=== PATIENT | female | born 1985 | race Caucasian/White ===

== ENCOUNTER 2018-05-16 17:29 | Inpatient (IN) ==
[2018-05-16] MEDS ORDERED: 0.9 % Sodium Chloride 1,000 ML IVC ONE ×2 (18:43→20:48)
[2018-05-16] MEDS ORDERED: *HR* Promethazine 25 MG/ML VIAL IVP ONE (18:44)
[2018-05-16] MEDS ORDERED: Ketorolac 15 MG/ML VIAL IVP ONE (18:44)
--- NOTE | 2018-05-16 18:47 | Emergency Department Note ---
Disposition Clinical Impression: Tobacco abuse Pneumonia Qualifiers: Pneumonia type: due to unspecified organism Laterality: unspecified laterality Lung location: unspecified part of lung Qualified Code(s): J18.9 - Pneumonia, unspecified organism Sepsis Qualifiers: Sepsis type: sepsis due to unspecified organism Qualified Code(s): A41.9 - Sepsis, unspecified organism Disposition: Home, Self-Care Condition: Good Referrals: NONE,PCP [Primary Care Provider] - General Adult HPI - General Stated complaint: FLU Time Seen by Provider: 05/16/18 18:25 Source: patient Mode of arrival: ambulatory Limitations: no limitations Nursing Notes Reviewed: Yes Vital Signs Reviewed: Yes - History of Present Illness HPI Narrative: 33 year old female with history of tobacco use and recent diagnosis of the flu presents for evaluation of flulike symptoms. Patient states symptom onset was 2 days ago. Describes it as cough and shortness of breath and muscle aches. Patient did have fever and chills at that time. Patient was evaluated yesterday in the ED and was told she had the flu and was started on Tamiflu. Since in the patient states her symptoms gotten worse. Patient is having a productive cough. Patient's continued to spike fevers. Patient states that her last dose of Tylenol and/or Motrin was earlier today. Does have episodes of emesis. Patient also states that she is a smoker. Denies any chest pain. No abdominal pain. Pain Scale: 7 - Related Data Previous Rx's Medication Instructions Recorded Oxycodone HCl/Acetaminophen 1 each PO Q1-4H PRN #10 tablet 03/01/15 [Percocet 5-325 mg Tablet] Promethazine [Phenergan] 12.5 mg PO Q6HR PRN #10 tablet 03/01/15 Ibuprofen 600 mg PO Q6-8H PRN #30 tablet 03/02/15 Ondansetron ODT [Zofran ODT] 4 mg SL Q4HR #10 tab.rapdis 03/02/15 Tamsulosin [Flomax] 0.4 mg PO DAILY #10 capsule 03/02/15 Clindamycin [Cleocin] 450 mg PO TID #90 capsule 04/16/16 Clindamycin [Cleocin] 300 mg PO TID #21 capsule 06/06/16 Naproxen [Naprosyn] 500 mg PO BID PRN #15 tablet 06/06/16 Cyclobenzaprine [Flexeril] 10 mg PO TID #30 tablet 06/18/16 Ibuprofen [Motrin] 400 mg PO Q8HR #30 tablet 06/18/16 Tramadol HCl [Ultram] 50 mg PO QID PRN #12 tab 07/14/16 Naproxen [Naprosyn] 500 mg PO BID #20 tablet 01/08/18 Ondansetron ODT [Zofran ODT] 4 mg SL Q6HR #12 tab.rapdis 05/15/18 Oseltamivir [Tamiflu] 75 mg PO BID #10 capsule 05/15/18 Allergies Allergy/AdvReac Type Severity Reaction Status Date / Time No Known Allergies Allergy Verified 06/18/16 19:45 All systems ED: reviewed and negative except as stated. Constitutional: Reports: fever Cardiovascular: Denies: chest pain Respiratory: Reports: cough, dyspnea, sputum production Gastrointestinal: Reports: nausea, vomiting. 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 - Social History Smoking Status: Current every day smoker Smokeless Tobacco Status: No Alcohol use: Reports: none Drug use: Reports: none Physical Exam - General Limitations: no limitations General appearance: alert, in no apparent distress - Head Head exam: atraumatic, normocephalic, normal inspection - Eye Eye exam: Present: normal appearance, PERRL, EOMI - ENT ENT exam: normal exam, normal oropharynx, mucous membranes moist - Neck Neck exam: Present: normal inspection - Chest Chest inspection: Present: normal inspection, symmetric chest wall rise - Respiratory Respiratory exam: Present: normal lung sounds bilaterally. Absent: respiratory distress, prolonged expiratory phase - Cardiovascular Cardiovascular exam: Present: regular rate, normal rhythm. Absent: systolic murmur - Abdominal Exam Abdominal exam: Present: soft, Non-Tender - Extremities Exam Extremities exam: Present: normal inspection. Absent: pedal edema - Back Exam Back exam: Present: normal inspection - Neurological Exam Neurological exam: Present: alert, oriented X3, CN II-XII intact - Skin Skin exam: Present: warm, dry, intact, normal color Course Course Narrative: Patient presents following flulike symptoms. Agents workup reviewed yesterday showed a chest x-ray basic labs. Patient's labs are unremarkable. Patient be treated symptomatically with IV fluids antiemetics repeat chest x-ray and anti-inflammatories. - Reevaluation(s) Reevaluation #1: Patient is updated on plan of care. Time: 19:37 Reevaluation #2: Patient seen and examined. Patient is requiring 2 L nasal cannula. Patient will be admitted for pneumonia. Time: 20:44 Vital Signs Temperature 100.7 F H 05/16/18 17:44 Pulse Rate 116 05/16/18 17:44 Respiratory Rate 24 05/16/18 17:44 Blood Pressure 115/77 05/16/18 17:44 O2 Sat by Pulse Oximetry 93 05/16/18 17:44 Temperature 102.3 F H 05/16/18 20:37 Pulse Rate 98 05/16/18 20:37 Respiratory Rate 16 05/16/18 20:37 Blood Pressure 107/74 05/16/18 20:37 O2 Sat by Pulse Oximetry 96 05/16/18 20:37 Oxygen Delivery Oxygen Delivery Nasal Cannula Medical Decision Making - [facility] Narrative Medical decision making narrative: Patient presents for concerns of the flu. Patient states she treated empirically yesterday with seen in the ED. Patient had a chest x-ray was started on Tamiflu. Patient states symptoms progressed and the patient returned. Patient's been having a productive cough. Fevers. On exam the patient had a nonfocal lung exam. Chest x-ray shows pneumonia. Patient was started on the most appropriate antibiotics. Patient was also treated symptomatically with anti-inflammatories and fluids. Patient's labs are clinically unremarkable. Patient does meet SIRS criteria and sepsis however the patient does not meet septic shock or severe sepsis. Patient does not require the 30 mL/kg fluid bolus. On repeat evaluation the patient's lungs are unchanged. Patient still shows good perfusion. Patient's flu swab today is negative. - Lab Data Result diagrams: 05/16/18 19:30 05/16/18 19:30 Lab Results 05/16/18 05/16/18 05/16/18 Range/Units 19:30 19:30 19:30 WBC 5.7 (4.3-11.1) K/mcL RBC 4.45 (3.82-4.97) M/mcL Hgb 13.4 (11.5-15.4) g/dL Hct 39.9 (35.3-44.9) % MCV 89.7 (83.0-100.0) fL MCH 30.1 (28.0-33.3) pg MCHC 33.6 (31.6-35.5) g/dL RDW 12.7 (11.5-14.5) % Plt Count 139 L (140-400) K/mcL MPV 10.7 (9.4-12.4) fL Immature Gran % 0.5 (0-4) % Seg Neutrophils % 87.1 % Lymphocytes % 8.3 % Monocytes % 3.5 % Eosinophils % 0.4 % Basophils % 0.2 % Neutrophils # 4.9 (1.6-8.9) K/mcL Lymphocytes # 0.5 L (0.6-4.6) K/mcL Monocytes # 0.2 (0.0-1.3) K/mcL Eosinophils # 0.0 (0.0-0.6) K/mcL Basophils # 0.0 (0.0-0.2) K/mcL Sodium 136 (136-145) mEq/L Potassium 3.6 (3.5-5.1) mEq/L Chloride 102 (98-107) mEq/L Carbon Dioxide 26 (23-29) mEq/L BUN 8 (6-20) mg/dL Creatinine 0.73 (0.60-1.20) mg/dL Est GFR ( Amer) > 60 (> 60) Est GFR (Non-Af Amer) > 60 (> 60) BUN/Creatinine Ratio 11 (6-26) Glucose 96 (70-105) mg/dL Calculated Osmolality 280 (280-300) Lactic Acid 0.9 (0.5-2.2) mmol/L Calcium 9.0 (8.6-10.3) mg/dL Total Bilirubin 0.4 (0.3-1.0) mg/dL AST 16 (13-39) Units/L ALT 13 (7-52) Units/L Alkaline Phosphatase 54 (34-104) Units/L Serum Total Protein 6.9 (6.4-8.9) g/dL Albumin 4.1 (3.5-5.7) g/dL Globulin 2.8 (2.4-3.5) g/dL Albumin/Globulin Ratio 1.5 (1.1-2.2) - Radiology Data Radiology results reviewed: Yes I reviewed the patient's radiology results. Chest X-Ray 05/16/18 18:43 IMPRESSION: New infiltrates suggestive of pneumonia involving mostly the right upper and left lower lobes. No evidence of pleural effusion or pneumothorax. D/ / 05/16/2018 19:19:52 Arianne Hackett MD / bcajay Interpreting Provider: MD Ean Delgadillo - Ean Situation: Demographics Background: Presenting Complaint Assessment: Vital Signs, Course and respsone to treatment, Patient/Family Expectation Recommendation: Barrier(s) to disposition, Recommendation based on pending studies, treatments, or consults S.[place]raham Report Given to: Dr. Jarrett Mckoy Repor Time: 20:51 Attestation Statement - Attestation Attestation: I examined this patient and my medical decision-making was reviewed with the Resident Physician. I agree with the documented findings, disposition and treatment plan as described except to the extent set forth below. Findings consistent with pneumonia. She is currently under the treatment for influenza but this was not tested. She actually does not have pneumonia but does have bilateral pnuemonia. She will be started on antibiotics, she will require admission due to need for supplemental oxygen. She is admitted for further workup and management.
[2018-05-16] MEDS ORDERED: Doxycycline 100 MG CAPSULE PO ONE (19:18)
[2018-05-16] MEDS ORDERED: Azithromycin 250 MG TABLET PO ONE (19:18)
[2018-05-16 20:03] LABS: Basophils % 0.2 %; Eosinophils % 0.4 %; Hematocrit 39.9 % (35.3-44.9); Hemoglobin 13.4 g/dL (11.5-15.4); Immature Granulocytes % 0.5 % (0-4); Lymphocytes # 0.5 K/mcL (0.6-4.6); Lymphocytes % 8.3 %; Mean Corpuscular HGB Conc 33.6 g/dL (31.6-35.5); Mean Corpuscular Hemoglobin 30.1 pg (28.0-33.3); Mean Corpuscular Volume 89.7 fL (83.0-100.0); Mean Platelet Volume 10.7 fL (9.4-12.4); Monocytes # 0.2 K/mcL (0.0-1.3); Monocytes % 3.5 %; Neutrophils # 4.9 K/mcL (1.6-8.9); Platelet Count 139 K/mcL (140-400); Red Blood Count 4.45 M/mcL (3.82-4.97); Red Cell Distribution Width 12.7 % (11.5-14.5); Segmented Neutrophils % 87.1 %
[2018-05-16 20:22] LABS: Alanine Aminotransferase 13 Units/L (7-52); Albumin 4.1 g/dL (3.5-5.7); Albumin/Globulin Ratio 1.5 (1.1-2.2); Alkaline Phosphatase 54 Units/L (34-104); Aspartate Amino Transferase 16 Units/L (13-39); BUN/Creatinine Ratio 11 (6-26); Bilirubin,Total 0.4 mg/dL (0.3-1.0); Blood Urea Nitrogen 8 mg/dL (6-20); Carbon Dioxide 26 mEq/L (23-29); Chloride 102 mEq/L (98-107); Globulin 2.8 g/dL (2.4-3.5); Glucose 96 mg/dL (70-105); Osmolality,Calculated 280 (280-300); Potassium 3.6 mEq/L (3.5-5.1); Sodium 136 mEq/L (136-145); Total Protein 6.9 g/dL (6.4-8.9); eGFR For Non-African Americans > 60 (> 60)
[2018-05-16] MEDS ORDERED: cefTRIAXone 1,000 MG in Water for inj. (sterile) 20 ML 10 ML IVP ONE (20:47)
[2018-05-17 01:08] LABS: Bilirubin,Urine Negative (Negative); Blood,Urine Small (Negative); Clarity,Urine Clear (Clear); Color,Urine Yellow (Yellow); Glucose,Urine (UA) Normal (Normal); Ketones,Urine Negative (Negative); Leukocyte Esterase,Urine Negative (Negative); Nitrite,Urine Negative (Negative); Protein,Urine Negative (Neg-Trace); Specific Gravity,Urine 1.007 (1.010-1.025); Urobilinogen,Urine Normal (Normal)
[2018-05-17 01:09] LABS: Bacteria,Urine None Seen per hpf (None-Few); Hyaline Casts,Urine None Seen per lpf (None-Few); Squamous Epithelial Cell,Urine Many per lpf (None-Few); WBC,Urine 0-3 per hpf (0-3)
[2018-05-17] MEDS: Acetaminophen 325 MG TABLET PO PRN ×3 (01:29→19:50)
[2018-05-17] MEDS ORDERED: Naloxone 0.4 MG/ML INJ IVP PRN (01:44)
[2018-05-17] MEDS ORDERED: 0.9 % Sodium Chloride 1,000 ML IVC ONE (01:54)
[2018-05-17] MEDS: Ibuprofen 400 MG TABLET PO PRN ×3 (02:22→19:50)
[2018-05-17] MEDS: *HR* HYDROcodone/Acet 5/325 mg TABLET PO PRN ×2 (04:43→17:03)
--- NOTE | 2018-05-17 06:08 | Internal Med History&Physical ---
Date of Encounter: 05/17/18 Time of Encounter: 01:30 Internal Medicine - H&P: HPI Chief complaint: Pneumonia Admitted From: Emergency Dept History of present illness: Ms. Nieves is a 33 year old female Patient states she began having a funny feeling in her chest 2 days prior to admission, gradually the pain worsened and was accompanied with shaking, fever and chills. She also started having a cough that is productive of white sputum at first but now green sputum. She went to the ER the day before her admission, was diagnosed with the flu, given Tamiflu and sent home. Despite the Tamiflu her symptoms worsened, she continued to have fevers, chills and vomiting. She returned to the emergency room for further management. In the emergency room her CBC showed a platelet count of 139, BMP was within normal limits. Lactic acid was 0.9. Urinalysis showed small blood with many squamous cells. Chest x-ray when compared to the day prior showed a new infiltrate suggesting pneumonia involving the right upper and left lower lobes. She was given antibiotics, blood cultures were drawn and she was sent to the floor for further management. Upon my assessment, patient states that she no longer feels nauseous and would like something to eat. She denies diarrhea, constipation and abdominal pain. She has some chest pain secondary to coughing, headache and occasionally is experiencing chills. She is a smoker of about a pack a day, but states that she desires to quit. She declines nicotine patch. Past Med Surg Social Fam HX - Past Medical History Medical history: kidney stones Additional medical history: MRSA Psychiatric history: no psych history - Past Surgical History Surgical History: Additional surgical history: Tonsilectomy - Social History Smoking Status: Current every day smoker Packs per day: 1 Smokeless Tobacco Status: No Alcohol use: none Drug use: none Internal Medicine - H&P: Meds No Known Home Drugs 05/16/18 [History] Allergy/AdvReac Type Severity Reaction Status Date / Time No Known Allergies Allergy Verified 06/18/16 19:45 All Systems PM: A 10-system review of systems was performed and is negative for pertinent findings except as documented above in the HPI. - Constitutional Vitals: Temp Pulse Resp BP Pulse Ox 99.3 F 98 17 90/53 96 05/17/18 05:25 05/17/18 05:25 05/17/18 05:25 05/17/18 05:25 05/17/18 05:25 General appearance: Present: cooperative, mild distress, A&O X 3, pleasant, answers questions appropriately Exam: As above - Head Head exam: Present: normal inspection - Eye Eye exam: Present: EOMI, normal appearance - Respiratory Respiratory exam: Present: chest wall tenderness, CTAB. Absent: rales, respiratory distress, rhonchi, wheezes - Cardiovascular Cardiovascular exam: Present: RRR. Absent: diastolic murmur, systolic murmur - GI/Abdominal GI/Abdominal exam: Present: normal bowel sounds, soft. Absent: tenderness - Extremities Exam Extremities exam: Present: warm, radial pulses palpable and symmetrical. Absent: calf tenderness, pedal edema, tenderness - Neurological Exam Neurological exam: Present: no focal deficits, strengths equal and symetr th roughout. Absent: motor sensory deficit, facial droop, speech deficit - Skin Skin exam: Present: dry, normal color, warm Internal Med - H&P Results - Labs CBC & Chem 7: 05/16/18 19:30 05/16/18 19:30 Labs: Short CBC 05/16/18 Range/Units 19:30 WBC 5.7 (4.3-11.1) K/mcL Hgb 13.4 (11.5-15.4) g/dL Hct 39.9 (35.3-44.9) % Plt Count 139 L (140-400) K/mcL Neutrophils # 4.9 (1.6-8.9) K/mcL BMP 05/16/18 19:30 Sodium 136 Potassium 3.6 Chloride 102 Carbon Dioxide 26 BUN 8 Creatinine 0.73 Glucose 96 Calcium 9.0 Liver Function 05/16/18 Range/Units 19:30 Total Bilirubin 0.4 (0.3-1.0) mg/dL AST 16 (13-39) Units/L ALT 13 (7-52) Units/L Alkaline Phosphatase 54 (34-104) Units/L Albumin 4.1 (3.5-5.7) g/dL Urine 05/17/18 Range/Units 00:50 Urine Color Yellow (Yellow) Urine Clarity Clear (Clear) Urine pH 6.0 (5.0-8.0) pH Units Ur Specific [place] 1.007 L (1.010-1.025) Urine Protein Negative (Neg-Trace) mg/dL Urine Glucose (UA) Normal (Normal) mg/dL - Impressions ITS Impressions Chest X-Ray 05/16/18 18:43 IMPRESSION: New infiltrates suggestive of pneumonia involving mostly the right upper and left lower lobes. No evidence of pleural effusion or pneumothorax. D/ / 05/16/2018 19:19:52 Arianne Hackett MD / bcarter Interpreting Provider: Arianne Hackett MD - Assessment and plan (1) Pneumonia Current Visit: Yes Status: Acute Assessment and plan: As evidenced by patient's chest x-ray, patient was started on antibiotics in the emergency room, blood cultures were drawn. She was diagnosed with the flu the day before, despite not having a flu swab performed. Continue azithromycin and ceftriaxone Follow-up blood cultures available Continue Tamiflu Monitor vitals. Qualifiers: Pneumonia type: due to unspecified organism Laterality: unspecified laterality Lung location: unspecified part of lung Qualified Code(s): J18.9 - Pneumonia, unspecified organism (2) Sepsis Current Visit: Yes Status: Acute Assessment and plan: Patient met sepsis criteria with elevated temperature, respiratory rate and heart rate. Chest x-ray showed pneumonia as a source. Lactic acid was 0.9 Treatment as above Vital signs improved, no longer meet sepsis criteria Qualifiers: Sepsis type: sepsis due to unspecified organism Qualified Code(s): A41.9 - Sepsis, unspecified organism (3) Acute respiratory failure with hypoxia Current Visit: Yes Status: Acute Assessment and plan: Likely secondary to pneumonia, patient stable on 2 L of oxygen nasal cannula. Will wean as tolerated (4) Hematuria Current Visit: Yes Status: Acute Assessment and plan: UA showed small blood, should follow-up with urinalysis outpatient to ensure resolution. Qualifiers: Hematuria type: asymptomatic microscopic Qualified Code(s): R31.21 - Asymptomatic microscopic hematuria (5) Thrombocytopenia Current Visit: Yes Status: Acute Assessment and plan: Platelet count marginally low at 139. Review of past values show low normal platelets. Continue to monitor, repeat labs in the morning (6) Tobacco abuse Current Visit: Yes Status: Acute Assessment and plan: Declines nicotine patch (7) DVT prophylaxis Current Visit: Yes Status: Acute Assessment and plan: SCDs - Time Spent With Patient Total time spent is greater than 50% in coordination of care (as documented) at patient's floor/unit and/or counseling patient: Greater than 35 minutes
[2018-05-17 07:59] LABS: Mean Corpuscular HGB Conc 32.6 g/dL (31.6-35.5); Mean Corpuscular Hemoglobin 29.8 pg (28.0-33.3); Mean Corpuscular Volume 91.4 fL (83.0-100.0); Mean Platelet Volume 10.8 fL (9.4-12.4); Platelet Count 118 K/mcL (140-400); Red Blood Count 3.72 M/mcL (3.82-4.97)
[2018-05-17 08:06] LABS: BUN/Creatinine Ratio 12 (6-26); Blood Urea Nitrogen 7 mg/dL (6-20); Carbon Dioxide 23 mEq/L (23-29); Chloride 111 mEq/L (98-107); Glucose 134 mg/dL (70-105); Osmolality,Calculated 288 (280-300); Potassium 3.3 mEq/L (3.5-5.1); Sodium 139 mEq/L (136-145); eGFR For Non-African Americans > 60 (> 60)
[2018-05-17 08:26] LABS: Hemoglobin 11.1 g/dL (11.5-15.4)
[2018-05-17] MEDS ORDERED: cefTRIAXone 1,000 MG in Water for inj. (sterile) 20 ML 10 ML IVP SCH (09:00)
--- NOTE | 2018-05-17 09:13 | Internal Med Progress Note ---
Hospitalist Progress Note - Encounter Date of Encounter: 05/17/18 Time of Encounter: 08:45 - Subjective Interval History: 33-year-old female with no significant past medical history who was admitted and being managed for sepsis secondary to pneumonia. Seen and examined at the bedside, complaining of feeling very tired and weak. 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 She has no known home medications. Labs and vitals notedlow blood pressure We will send sputum culture, will start continuous IV fluid hydration. - Exam Vitals: Temp Pulse Resp BP Pulse Ox 98 F 89 18 88/58 94 05/17/18 07:19 05/17/18 07:19 05/17/18 07:19 05/17/18 07:19 05/17/18 07:19 Exam: Gen: Febrile, in mild resp distress HEENT: Moist roal mucosa, not jaundiced, not pale, not cyanotic Head: Atraumtic Chest: equal chest movement bilaterally Respiratory: Rhonchi right lower and middle lobes. Left lung is clear to auscultation Heart: S1/S2 no murmurs, gallops or rubs Abdomen: Flat soft and nontender no palpable organomegaly Extremities: Tattoos, no pedal edema. - Assessment and Plan (1) Sepsis Current Visit: Yes Status: Acute Assessment and Plan: Patient meets sepsis criteria with fever, tachycardia, low blood pressure and chest x-ray evidence of pneumonia Until IV fluid hydration Send sputum culture Follow blood cultures Continue Tamiflu, continue azithromycin and ceftriaxone at sepsis doses Continue to monitor closely Lactate on presentation was within normal limit (2) DVT prophylaxis Current Visit: Yes Status: Acute Assessment and Plan: Ambulate patient when necessary, SCDs (3) Hematuria Current Visit: Yes Status: Acute Assessment and Plan: Per UA< follow/monitor as outpatient (4) Pneumonia Current Visit: Yes Status: Acute (5) Thrombocytopenia Current Visit: Yes Status: Acute Assessment and Plan: Likely due to sepsis and dilution from IV fluids, continue to monitor. No bleeding. (6) Tobacco abuse Current Visit: Yes Status: Chronic Assessment and Plan: Encouraged cessation. (7) Hypoxia Current Visit: Yes Status: Acute Assessment and Plan: Stable on 2 L of oxygen by nasal cannula, continue the same. - Time Spent with Patient Total time spent is greater than 50% in coordination of care (as documented) at patient's floor/unit and/or counseling patient: Internal Medicine: Result - Labs CBC & Chem 7: 05/17/18 06:56 05/17/18 06:56 Labs: Short CBC 05/16/18 05/17/18 Range/Units 19:30 06:56 WBC 5.7 5.6 (4.3-11.1) K/mcL Hgb 13.4 11.1 L D (11.5-15.4) g/dL Hct 39.9 34.0 L (35.3-44.9) % Plt Count 139 L 118 L (140-400) K/mcL Neutrophils # 4.9 (1.6-8.9) K/mcL BMP 05/16/18 05/17/18 19:30 06:56 Sodium 136 139 Potassium 3.6 3.3 L Chloride 102 111 H Carbon Dioxide 26 23 BUN 8 7 Creatinine 0.73 0.60 Glucose 96 134 H Calcium 9.0 8.0 L Liver Function 05/16/18 Range/Units 19:30 Total Bilirubin 0.4 (0.3-1.0) mg/dL AST 16 (13-39) Units/L ALT 13 (7-52) Units/L Alkaline Phosphatase 54 (34-104) Units/L Albumin 4.1 (3.5-5.7) g/dL Urine 05/17/18 Range/Units 00:50 Urine Color Yellow (Yellow) Urine Clarity Clear (Clear) Urine pH 6.0 (5.0-8.0) pH Units Ur Specific [place] 1.007 L (1.010-1.025) Urine Protein Negative (Neg-Trace) mg/dL Urine Glucose (UA) Normal (Normal) mg/dL - Impressions Impressions Chest X-Ray 05/16/18 18:43 IMPRESSION: New infiltrates suggestive of pneumonia involving mostly the right upper and left lower lobes. No evidence of pleural effusion or pneumothorax. D/ / 05/16/2018 19:19:52 Arianne Hackett MD / bcarter Interpreting Provider: Arianne Hackett MD - VTE Documentation of Mechanical Device: Intermittent pneumatic compression device Consult Discharge Plan - Plan (1) Sepsis Qualifiers: Sepsis type: sepsis due to unspecified organism Qualified Code(s): A41.9 - Sepsis, unspecified organism (3) Hematuria Qualifiers: Hematuria type: asymptomatic microscopic Qualified Code(s): R31.21 - Asympto matic microscopic hematuria (4) Pneumonia Qualifiers: Pneumonia type: due to unspecified organism Laterality: unspecified laterality Lung location: unspecified part of lung Qualified Code(s): J18.9 - Pneumonia, unspecified organism
[2018-05-17] MEDS: cefTRIAXone 2,000 MG in Water for inj. (sterile) 20 ML 20 ML IVP SCH (09:52)
[2018-05-17] MEDS: Ringers Solution, Lactated 1,000 ML IVC SCH ×2 (09:52→18:34)
[2018-05-17] MEDS ORDERED: Azithromycin 500 MG in D5% in Water 250 ML IVPB SCH (21:00)
[2018-05-17] MEDS ORDERED: Ipratropium/Albuterol Neb 3 ML IH ONE (21:47)
[2018-05-17] MEDS ORDERED: Ipratropium/Albuterol Neb 3 ML ONE (21:49)
[2018-05-18] MEDS: *HR* HYDROcodone/Acet 5/325 mg TABLET PO PRN ×3 (01:26→23:04)
[2018-05-18] MEDS: Ringers Solution, Lactated 1,000 ML IVC SCH (04:41)
[2018-05-18] MEDS: Ibuprofen 400 MG TABLET PO PRN ×3 (04:41→21:59)
[2018-05-18 05:13] LABS: Basophils % 0.2 %; Eosinophils # 0.1 K/mcL (0.0-0.6); Eosinophils % 1.3 %; Hematocrit 35.4 % (35.3-44.9); Hemoglobin 11.3 g/dL (11.5-15.4); Immature Granulocytes % 0.4 % (0-4); Lymphocytes # 0.7 K/mcL (0.6-4.6); Lymphocytes % 15.1 %; Mean Corpuscular HGB Conc 31.9 g/dL (31.6-35.5); Mean Corpuscular Hemoglobin 29.5 pg (28.0-33.3); Mean Corpuscular Volume 92.4 fL (83.0-100.0); Mean Platelet Volume 10.2 fL (9.4-12.4); Monocytes # 0.3 K/mcL (0.0-1.3); Monocytes % 6.7 %; Neutrophils # 3.7 K/mcL (1.6-8.9); Platelet Count 125 K/mcL (140-400); Red Blood Count 3.83 M/mcL (3.82-4.97); Red Cell Distribution Width 13.2 % (11.5-14.5); Segmented Neutrophils % 76.3 %
[2018-05-18 05:32] LABS: BUN/Creatinine Ratio 10 (6-26); Blood Urea Nitrogen 6 mg/dL (6-20); Calcium 8.2 mg/dL (8.6-10.3); Carbon Dioxide 24 mEq/L (23-29); Chloride 108 mEq/L (98-107); Glucose 106 mg/dL (70-105); Osmolality,Calculated 282 (280-300); Potassium 3.7 mEq/L (3.5-5.1); Sodium 137 mEq/L (136-145); eGFR For Non-African Americans > 60 (> 60)
[2018-05-18] MEDS: cefTRIAXone 2,000 MG in Water for inj. (sterile) 20 ML 20 ML IVP SCH (08:15)
[2018-05-18] MEDS: Acetaminophen 325 MG TABLET PO PRN ×2 (08:24→23:21)
[2018-05-18] MEDS: Ondansetron 4 MG/2 ML VIAL IVP PRN (09:06)
--- NOTE | 2018-05-18 09:28 | Internal Med Progress Note ---
Hospitalist Progress Note - Encounter Date of Encounter: 05/18/18 Time of Encounter: 09:26 - Subjective Interval History: 33-year-old female with no significant past medical history who is admitted and being managed for sepsis secondary to pneumonia. Seen and examined at the bedside She continued to have fever, most recent episode this a.m at 0517 100.3 She also has nausea and vomiting this a.m She continues to require 02 2L by nasal canula and has productive cough Rpt 2 views CXR scheduled - Exam Vitals: Temp Pulse Resp BP Pulse Ox 100.3 F H 106 19 104/68 92 05/18/18 05:17 05/18/18 05:17 05/18/18 05:17 05/18/18 05:17 05/18/18 05:17 Exam: Gen: Febrile, in mild resp distress HEENT: Moist roal mucosa, not jaundiced, not pale, not cyanotic Head: Atraumtic Chest: equal chest movement bilaterally Respiratory: Rhonchi right lower and middle lobes. Left lung is clear to auscultation Heart: S1/S2 no murmurs, gallops or rubs Abdomen: Flat soft and nontender no palpable organomegaly Extremities: Tattoos, no pedal edema. - Assessment and Plan (1) Sepsis Current Visit: Yes Status: Acute Assessment and Plan: Patient meets sepsis criteria with fever, tachycardia, low blood pressure and chest x-ray evidence of pneumonia Likley due to influenza and pneumonia Repeat chest x-ray 2 views scheduled to assess for any parapneumonic effusion Continue Tamiflu-day 3 continue azithromycin and ceftriaxone at sepsis doses-day 2 Continue to monitor closely Lactate on presentation was within normal limit Discontinue IV fluids Follow-up cultures: Sputum home. Continue supportive care: Antiemetics, antipyretics (2) DVT prophylaxis Current Visit: Yes Status: Acute Assessment and Plan: Ambulate patient when necessary, SCDs (3) Hematuria Current Visit: Yes Status: Acute Assessment and Plan: Per UA< follow/monitor as outpatient (4) Pneumonia Current Visit: Yes Status: Acute (5) Thrombocytopenia Current Visit: Yes Status: Acute Assessment and Plan: Likely due to sepsis and dilution from IV fluids, continue to monitor. No bleeding. (6) Tobacco abuse Current Visit: Yes Status: Chronic Assessment and Plan: Encouraged cessation. (7) Hypoxia Current Visit: Yes Status: Acute Assessment and Plan: Stable on 2 L of oxygen by nasal cannula, continue the same. - Time Spent with Patient Total time spent is greater than 50% in coordination of care (as documented) at patient's floor/unit and/or counseling patient: Plan of Care Discussed with: patient Internal Medicine: Result - Labs CBC & Chem 7: 05/18/18 04:46 05/18/18 04:46 Labs: Short CBC 05/18/18 Range/Units 04:46 WBC 4.8 (4.3-11.1) K/mcL Hgb 11.3 L (11.5-15.4) g/dL Hct 35.4 (35.3-44.9) % Plt Count 125 L (140-400) K/mcL Neutrophils # 3.7 (1.6-8.9) K/mcL BMP 05/18/18 04:46 Sodium 137 Potassium 3.7 Chloride 108 H Carbon Dioxide 24 BUN 6 Creatinine 0.61 Glucose 106 H Calcium 8.2 L - VTE Documentation of Mechanical Device: Intermittent pneumatic compression device Consult Discharge Plan - Plan Referrals: NONE,PCP [Primary Care Provider] - (1) Sepsis Qualifiers: Sepsis type: sepsis due to unspecified organism Qualified Code(s): A41.9 - Sepsis, unspecified organism (3) Hematuria Qualifiers: Hematuria type: asymptomatic microscopic Qualified Code(s): R31.21 - Asymptomatic microscopic hematuria (4) Pneumonia Qualifiers: Pneumonia type: due to influenza A virus Laterality: unspecified laterality Lung location: unspecified part of lung Qualified Code(s): J10.00 - Influenza due to other identified influenza virus with unspecified type of pneumonia
[2018-05-18] MEDS: Piperacillin/Tazobactam 3.375 GM in 0.9 % Sodium Chloride Mini Bag 100 ML IVPB SCH ×2 (12:23→20:45)
[2018-05-18] MEDS: *HR* Promethazine 25 MG/ML VIAL IVP PRN ×2 (12:23→20:53)
[2018-05-19] MEDS ORDERED: 0.9 % Sodium Chloride 1,000 ML IVC ONE (03:09)
[2018-05-19 04:52] LABS: Basophils % 0.3 %; Eosinophils # 0.1 K/mcL (0.0-0.6); Eosinophils % 3.4 %; Hematocrit 30.8 % (35.3-44.9); Hemoglobin 10.1 g/dL (11.5-15.4); Immature Granulocytes % 0.3 % (0-4); Lymphocytes # 1.1 K/mcL (0.6-4.6); Lymphocytes % 27.1 %; Mean Corpuscular HGB Conc 32.8 g/dL (31.6-35.5); Mean Corpuscular Hemoglobin 29.8 pg (28.0-33.3); Mean Corpuscular Volume 90.9 fL (83.0-100.0); Monocytes # 0.4 K/mcL (0.0-1.3); Monocytes % 9.6 %; Neutrophils # 2.3 K/mcL (1.6-8.9); Platelet Count 130 K/mcL (140-400); Red Blood Count 3.39 M/mcL (3.82-4.97); Red Cell Distribution Width 13.2 % (11.5-14.5); Segmented Neutrophils % 59.3 %
[2018-05-19] MEDS: D5% in 0.45% NACL w KCl 20 MEQ/1,000 ML MLS IVC SCH ×2 (04:59→20:19)
[2018-05-19] MEDS: Piperacillin/Tazobactam 3.375 GM in 0.9 % Sodium Chloride Mini Bag 100 ML IVPB SCH ×3 (04:59→20:21)
[2018-05-19 05:07] LABS: BUN/Creatinine Ratio 16 (6-26); Blood Urea Nitrogen 8 mg/dL (6-20); Calcium 8.3 mg/dL (8.6-10.3); Carbon Dioxide 24 mEq/L (23-29); Chloride 108 mEq/L (98-107); Glucose 130 mg/dL (70-105); Osmolality,Calculated 286 (280-300); Potassium 3.6 mEq/L (3.5-5.1); Sodium 138 mEq/L (136-145); eGFR For Non-African Americans > 60 (> 60)
[2018-05-19] MEDS: Acetaminophen 325 MG TABLET PO PRN ×3 (05:17→18:12)
[2018-05-19] MEDS ORDERED: Isovue-370 500 ML INFUS..BTL IV ONE (09:07)
--- NOTE | 2018-05-19 09:57 | Internal Med Progress Note ---
Hospitalist Progress Note - Encounter Date of Encounter: 05/19/18 Time of Encounter: 09:50 - Exam Vitals: Temp Pulse Resp BP Pulse Ox 98.5 F 68 15 102/68 93 05/19/18 07:49 05/19/18 07:49 05/19/18 03:00 05/19/18 07:49 05/19/18 09:08 Exam: Gen: Febrile, in mild resp distress HEENT: Moist roal mucosa, not jaundiced, not pale, not cyanotic Head: Atraumtic Chest: equal chest movement bilaterally Respiratory: Rhonchi right lower and middle lobes. Left lung is clear to auscultation Heart: S1/S2 no murmurs, gallops or rubs Abdomen: Flat soft and nontender no palpable organomegaly Extremities: Tattoos, no pedal edema. - Assessment and Plan (1) Sepsis Current Visit: Yes Status: Acute Assessment and Plan: Patient meets sepsis criteria with fever, tachycardia, low blood pressure and chest x-ray evidence of pneumonia Likely due to multifocal pneumonia. CT chest showed 5 lobe consolidative, grou nd-glass and tree-in-bud airspace opacities are most suspicious for multifocal pneumonia. Continue vanc and zosyn. ID and pulmonary consulted and recs appreciated (2) Multifocal pneumonia Current Visit: Yes Status: Acute Assessment and Plan: On broad spectrum antibiotics. Pulm and ID following (3) Tobacco abuse Current Visit: Yes Status: Chronic Assessment and Plan: Encouraged cessation. (4) Thrombocytopenia Current Visit: Yes Status: Acute Assessment and Plan: Likely due to sepsis and hemodilution, continue to monitor. No bleeding. (5) Hypoxia Current Visit: Yes Status: Acute Assessment and Plan: Continue oxygen supplementation as needed (6) DVT prophylaxis Current Visit: Yes Status: Acute Assessment and Plan: Ambulate patient when necessary, SCDs - Time Spent with Patient Total time spent is greater than 50% in coordination of care (as documented) at patient's floor/unit and/or counseling patient: Internal Medicine: Result - Labs CBC & Chem 7: 05/19/18 03:47 05/19/18 03:47 Labs: Short CBC 05/19/18 Range/Units 03:47 WBC 3.9 L (4.3-11.1) K/mcL Hgb 10.1 L (11.5-15.4) g/dL Hct 30.8 L (35.3-44.9) % Plt Count 130 L (140-400) K/mcL Neutrophils # 2.3 (1.6-8.9) K/mcL BMP 05/19/18 03:47 Sodium 138 Potassium 3.6 Chloride 108 H Carbon Dioxide 24 BUN 8 Creatinine 0.51 L Glucose 130 H Calcium 8.3 L - VTE Documentation of Mechanical Device: Intermittent pneumatic compression device Consult Discharge Plan - Plan Referrals: Stephen Carbajal MD [Partnered Physician] - 05/22/18 2:45 pm (1) Sepsis Qualifiers: Sepsis type: sepsis due to unspecified organism Qualified Code(s): A41.9 - Sepsis, unspecified organism
[2018-05-19] MEDS ORDERED: Ipratropium/Albuterol Neb 3 ML IH PRN (11:15)
[2018-05-19] MEDS ORDERED: Ipratropium/Albuterol Neb 3 ML ONE (11:16)
[2018-05-19 11:39] LABS: Adenovirus Not Detected (Not Detect); Bordetella Pertussis Not Detected (Not Detect); Chlamydophila pneumoniae Not Detected (Not Detect); Coronavirus 229E Not Detected (Not Detect); Coronavirus HKU1 Not Detected (Not Detect); Coronavirus NL63 Not Detected (Not Detect); Coronavirus OC43 Not Detected (Not Detect); Human Metapneumovirus Not Detected (Not Detect); Human Rhinovirus/Enterovirus Not Detected (Not Detect); Influenza A Subtype 2009 H1 Not Detected (Not Detect); Influenza A Untypeable Not Detected (Not Detect); Influenza B Not Detected (Not Detect); Mycoplasma pneumoniae Not Detected (Not Detect); Parainfluenza Virus 1 Not Detected (Not Detect); Parainfluenza Virus 2 Not Detected (Not Detect); Parainfluenza Virus 3 Not Detected (Not Detect); Parainfluenza Virus 4 Not Detected (Not Detect); Respiratory Syncytial Virus Not Detected (Not Detect)
[2018-05-19] MEDS: *HR* Promethazine 25 MG/ML VIAL IVP PRN (12:05)
[2018-05-19] MEDS: *HR* HYDROcodone/Acet 5/325 mg TABLET PO PRN (12:21)
--- NOTE | 2018-05-19 13:44 | Infectious Disease Consult ---
Date of Encounter: 05/19/18 Time of Encounter: 13:42 Assessment and Plan (1) Sepsis Status: Resolved Assessment and plan: - Met 3/4 SIRS criteria with fever (100.4, HR 112, RR 20) on presentation 05/15 - Suspected source: pulmonary/pneumonia - Suspected organism: unclear at this time - Patient continues to spike fevers during admission on 05/15, 05/16, 05/17, 05/18 despite antibiotic therapy. Tmax 102.7 - No WBC eleavation however WBC <4 at 3.9 this AM. - Started on azithromycin (1 day), ceftriaxone (3 days total) on presentation, stopped 05/18 - Started on vancomycin and zosyn (day 2) for persistent fevers - MRSA screen negative today - Respiratory infectious panel negative, rapid flu negative - Blood culture 05/16 x2 NG - Urine legionella and strep pneumo Ag negative 05/16 - Sputum culture 05/17 shows normal respiratory ayaan. - CXR on 05/15 in ED shows new infiltrates suggestive of PNA in RUL and LLL. - CXR repeated on 05/18 shows worsening patchy opacification in same areas - CT chest 05/19 shows 5 lobe consolidative, ground glass and tree-in-bud airspace opacities that are suspicious for multifocal PNA. Additional finding of rounded/tubular opacitity with dilated bronchiole vs soft tissue nodule in EMMANUEL, recommend follow up in 3 months. Small left pleural effusion, mediastinal/hilar lymphadenopathy which is likely reactive. Plan - Continue vancomycin and zosyn, day 2. Will likely discontinue vancomycin tomorrow as MRSA swab was negative today - Will add levaquin for atypical coverage, day 1 - Will consult pulmonology for additional recommendations and possible broncoscopy - Will order procalcitonin, HIV, cryptococcal Ag to evaluate other etiologies and determine viral vs bacterial etiology. Results pending. - Low suspicion for TB at this time as she is low risk and immunocompetent. - Suggest discontinue tamiflu after todays dose as she will have completed a 10 day course. - Continue supportive care. Qualifiers: Sepsis type: sepsis due to unspecified organism Qualified Code(s): A41.9 - Sepsis, unspecified organism (2) Pneumonia Status: Acute Assessment and plan: - unclear if this is viral or bacterial etiology - Not improving with tamiflu or antibiotics. - Management per above, appreciate pulmonology consult. Qualifiers: Pneumonia type: due to unspecified organism Laterality: unspecified laterality Lung location: unspecified part of lung Qualified Code(s): J18.9 - Pneumonia, unspecified organism (3) Flu Status: Suspected Assessment and plan: - Suspect influenza given clinical symptoms - Patient has been treated with Tamiflu starting 05/15 (day 5) - Influenza Ag swab 05/16 negative - Respiratory infectious panel negative as well on 05/19 - Patient reporting symptoms of myalgias, persistent fevers, nausea with vomiting - I do have some suspicion that influenza still may be present with superimposed pneumonia as she has been treated with oseltamivir and may no longer be shedding the virus. - Will continue tamiflu to completion and discontinue after tonight's dose. (4) Acute respiratory failure with hypoxia Status: Acute Assessment and plan: - As above, secondary to pneumonia - Currently requiring 1 L NC, O2 saturation in the mid-low 90s Infectious Disease HPI - Data of Consult Patient: new to practice Consult date: 05/19/18 Requesting Physician: Neena Mckenna Primary Care Provider: PCP NONE - Consult Narrative Reason for consult: Persistent fevers History of present illness: Ms. Nieves is a 33 year old female with a PMhx of migraines presented to [facility] ED with a complaint of fevers, malaise, productive cough with green sputum, and a "funny feeling in her chest". She states symptoms have been present since Friday05/13/18 and have worsened since onset. She states she is having pleuritic chest pain that is especially worsened with coughing. Her fevers she has measured one time at 104F. She has began to complain of dyspnea on exertion during this time as well. She was recently seen at this ED for the same complaints and was sent home with a prescription for Tamiflu for suspected influenza. She has been complaint with the tamiflu since. She states that her symptoms have persisted despite this. She also admits to a sick contact of her 11-year old son, who was diagnosed with pneumonia 2 weeks ago and completed a course of omnicef with resolution of symptoms. She denies any urinary symptoms including frequency, dysuria, hematuria as well as diarrhea, melena, hematochez ia, rashes, joint pain but does admit to myalgias. She also admits to some nausea with few episodes of clear vomiting. PMhx: migraines PShx: hysterectomy x4 Social: Current 1 PPD smoker, denies alcohol or drug use. Works as [email or web address]. CC: Neena Mckenna Past Med Surg Social Fam HX - Past Medical History Medical history: kidney stones Additional medical history: MRSA Psychiatric history: no psych history - Past Surgical History Surgical History: Additional surgical history: Tonsilectomy - Social History Smoking Status: Current every day smoker Packs per day: 1 Smokeless Tobacco Status: No Alcohol use: none Drug use: none Infectious Disease-CN:Meds Ondansetron ODT [Zofran ODT] 4 mg SL Q6HR 05/18/18 [History] Oseltamivir [Tamiflu] 75 mg PO BID 05/18/18 [History] Allergy/AdvReac Type Severity Reaction Status Date / Time No Known Allergies Allergy Verified 06/18/16 19:45 - Constitutional Constitutional: Present: anorexia, chills, fatigue, fever(s), lethargy, malaise. Absent: headache(s) - EENT Nose, mouth and throat: Absent: headache(s), hoarseness, nasal congestion, nasal discharge, neck pain, post-nasal drip, sinus pressure, sore throat - Cardiovascular Cardiovascular: Present: chest pain. Absent: chest pain at rest, edema, leg edema, lightheadedness, syncope - Respiratory Respiratory: Present: cough, dyspnea, dyspnea on exertion, chest congestion. Absent: hemoptysis, wheezing - Gastrointestinal Gastrointestinal: Present: change in bowel habits (decreased number of BM), nausea, vomiting. Absent: bloating, change in stool character, constipation, diarrhea, hematemesis, hematochezia, melena - Genitourinary Genitourinary: Absent: dysuria, flank pain, urinary hesitancy, urinary incontinence - Musculoskeletal Musculoskeletal: Absent: arthralgias, joint swelling, muscle weakness, numbness - Integumentary Integumentary: Absent: rash - Neurological Neurological: Absent: sensory deficit Exam - Constitutional Vitals: Temp Pulse Resp BP Pulse Ox 98.5 F 85 16 120/83 93 05/19/18 12:00 05/19/18 12:00 05/19/18 12:00 05/19/18 12:00 05/19/18 12:00 Exam: Gen.: Vitals noted. No acute distress. AAOx3, resting in chair at bedside. Mildly diaphoretic. HEENT: PERRL/EOMI, oropharynx clear, Normocephalic, atraumatic, MMM Cardiac: RRR, no murmur, +S1/S2, No BLE edema Pulmonary: Mild fine crackles appreciated on left lower lobe. Otherwise CTA bilaterally, no wheezes, rales or rhonchi, equal chest expansion, unlabored breathing Abdomen: soft, nontender, BS noted, no guarding, no palpable HSM Back: Nontender throughout. Skin: warm and dry, no visible lesions. Some diaphoresis MSK: ROM intact, no joint swelling noted, gait no assessed while in bed. Non tender calf or clubbing Neuro: A&Ox3, moves all extremities, no focal deficits Psych: Appropriate mood and behavior, AOx3 Infectious Disease CN: Results - Labs CBC & Chem 7: 05/21/18 03:30 05/21/18 03:30 Cultures: Cultures 05/17/18 09:57 Sputum Culture - Final Sputum 05/17/18 00:50 Legionella Antigen - Final Urine,Clean Catch Streptococcus pneumoniae Antigen (M - Final 05/16/18 19:30 Influenza Types A,B Antigen - Final Nasopharyngeal 05/16/18 19:30 Blood Culture - Preliminary Peripheral Venipuncture Culture is incubating and being continuously monitored for growth. Final report to follow. 05/16/18 19:52 Blood Culture - Preliminary Peripheral Venipuncture Culture is incubating and being continuously monitored for growth. Final report to follow. Serology: Serology 05/19/18 05/19/18 05/17/18 Range/Units 10:00 10:00 00:50 Urine Color (Yellow) Urine Clarity (Clear) Urine pH (5.0-8.0) pH Units Ur Specific [place] (1.010-1.025) Urine Protein (Neg-Trace) mg/dL Urine Glucose (UA) (Normal) mg/dL Urine Ketones (Negative) mg/dL Urine Blood (Negative) Urine Nitrite (Negative) Urine Bilirubin (Negative) Urine Urobilinogen (Normal) mg/dL Ur Leukocyte Esterase (Negative) Urine Microscopic RBC (0-3) per hpf Urine Microscopic WBC (0-3) per hpf Ur Squamous Epith Cells (None-Few) per lpf Urine Bacteria (None-Few) per hpf Hyaline Casts (None-Few) per lpf Ur Culture Indicated? (NO) Urine Test Negative (Negative) Nasal Screen MRSA (PCR) Negative (Negative) Chlamy pneumoniae PCR Not Detected (Not Detect) Adenovirus (PCR) Not Detected (Not Detect) B. pertussis DNA (PCR) Not Detected (Not Detect) B.parapertussis DNA PCR Not Detected (Not Detect) Coronavirus OC43 (PCR) Not Detected (Not Detect) Coronavirus HKU1 (PCR) Not Detected (Not Detect) Coronavirus 229E (PCR) Not Detected (Not Detect) Coronavirus NL63 (PCR) Not Detected (Not Detect) Human Metapneumovir PCR Not Detected (Not Detect) Influenza A (H1) PCR Not Detected (Not Detect) Influ A (H1N1/09) PCR Not Detected (Not Detect) Influenza A (H3) PCR Not Detected (Not Detect) Influenza A Untype (PCR) Not Detected (Not Detect) Influenza Type B (PCR) Not Detected (Not Detect) M.pneumoniae DNA (PCR) Not Detected (Not Detect) Parainfluenza 1 (PCR) Not Detected (Not Detect) Parainfluenza 2 (PCR) Not Detected (Not Detect) Parainfluenza 3 (PCR) Not Detected (Not Detect) Parainfluenza 4 (PCR) Not Detected (Not Detect) RSV (PCR) Not Detected (Not Detect) Entero/Rhino (PCR) Not Detected (Not Detect) 05/17/18 Range/Units 00:50 Urine Color Yellow (Yellow) Urine Clarity Clear (Clear) Urine pH 6.0 (5.0-8.0) pH Units Ur Specific [place] 1.007 L (1.010-1.025) Urine Protein Negative (Neg-Trace) mg/dL Urine Glucose (UA) Normal (Normal) mg/dL Urine Ketones Negative (Negative) mg/dL Urine Blood Small H (Negative) Urine Nitrite Negative (Negative) Urine Bilirubin Negative (Negative) Urine Urobilinogen Normal (Normal) mg/dL Ur Leukocyte Esterase Negative (Negative) Urine Microscopic RBC 3-5 H (0-3) per hpf Urine Microscopic WBC 0-3 (0-3) per hpf Ur Squamous Epith Cells Many H (None-Few) per lpf Urine Bacteria None Seen (None-Few) per hpf Hyaline Casts None Seen (None-Few) per lpf Ur Culture Indicated? NO (NO) Urine Test (Negative) Nasal Screen MRSA (PCR) (Negative) Chlamy pneumoniae PCR (Not Detect) Adenovirus (PCR) (Not Detect) B. pertussis DNA (PCR) (Not Detect) B.parapertussis DNA PCR (Not Detect) Coronavirus OC43 (PCR) (Not Detect) Coronavirus HKU1 (PCR) (Not Detect) Coronavirus 229E (PCR) (Not Detect) Coronavirus NL63 (PCR) (Not Detect) Human Metapneumovir PCR (Not Detect) Influenza A (H1) PCR (Not Detect) Influ A (H1N1/09) PCR (Not Detect) Influenza A (H3) PCR (Not Detect) Influenza A Untype (PCR) (Not Detect) Influenza Type B (PCR) (Not Detect) M.pneumoniae DNA (PCR) (Not Detect) Parainfluenza 1 (PCR) (Not Detect) Parainfluenza 2 (PCR) (Not Detect) Parainfluenza 3 (PCR) (Not Detect) Parainfluenza 4 (PCR) (Not Detect) RSV (PCR) (Not Detect) Entero/Rhino (PCR) (Not Detect) - VTE Documentation of Mechanical Device: Intermittent pneumatic compression device Consult Discharge Plan - Plan Referrals: Stephen Carbajal MD [Partnered Physician] - 05/22/18 2:45 pm - Attending Attestation I examined this patient and my medical decision-making was reviewed with the Resident Physician. I agree with the documented findings, disposition and t reatment plan as described except to the extent set forth below. This is an addendum to original report dictated by resident physician. Please refer to resident's note for full detail. Patient is a 33-year-old woman with no past medical history who was otherwise nasal state of health came in with shortness of breath cough sepsis like picture. Patient was noted to have a significant multilobar pneumonia. We were asked to evaluate the patient and make further recommendations. On further que stioning patient tells me that her son was sick with pneumonia 2 weeks ago. She has 4 children age 14 1211 and 9 and the 11-year-old was sick with a pneumonia and received Omnicef she believes. Assessment and plan: Sepsis Pneumonia Acute respiratory failure with hypoxia Recommendations: Pneumonia so far appears to be viral I am concern for superimposed bacterial infection. CT was impressive, I did speak with pulmonary and asked him to evaluate. We will check routine labs including urine legionella and pneumococcal antigen. Respiratory infectious panel. Cryptococcal antigen. Blood cultures. And HIV test. Ask pulmonary to evaluate Agree with broad-spectrum antibiotics Agree with keeping the patient and droplet isolation until restaurant infectious panel is back Duration of treatment with vancomycin and Zosyn depends on the clinical picture. We will add levofloxacin for atypical coverage Monitor labs and for drug toxicity.
--- NOTE | 2018-05-19 15:26 | Pulmonology Consult Note ---
Date of Encounter: 05/19/18 Time of Encounter: 15:26 Assessment and Plan (1) Hypoxia Current Visit: Yes Status: Acute Patient currently saturating well on essentially nasal cannula of 1 L which can be weaned down to room air I suspect encourage incentive spirometry out of bed to chair and ambulation as tolerated to mitigate the effects of VQ mismatching from atelectasis (2) Multifocal pneumonia Current Visit: Yes Status: Acute Patient with multifocal worsening pneumonia persistent fevers worsening radiographic evidence of pneumonia despite treatment with antibiotics has been seen by infectious disease and we are both in agreement that A bronchoscopy is recommended. The procedure , risks, benefits, complications, and expected outcomes have been reviewed. Benefits of diagnosis, as well as risks to include bleeding, infection, pneumothorax which may require surgical intervention, and in a small population. The patient is aware that sometimes test is nondiagnostic. Discussed with patient and agrees to proceed Please keep patient nothing by mouth after midnight for this. Continue broad-spectrum antimicrobials per infectious disease recommendations (3) Tobacco abuse Current Visit: Yes Status: Chronic Tobacco cessation counseling provided the patient she declines a nicotine replacement at this time when I asked her History of Present Illness Consult date: 05/19/18 Requesting physician: Oanh Diaz Reason for consult: pneumonia Chief complaint: Difficulty in Breathing History of present illness: This is a pleasant 33-year-old woman who initially presented to the emergency department on the for difficulty breathing fevers chills and flulike symptoms. She was told that she had "the flu" was given a course of Ostelamivir a discharge unfortunately symptoms continue to get worse she was to return to the emergency room the following day was admitted for further evaluation found to have multifocal pneumonia on chest x-ray and despite the use of broad- spectrum antibiotics including low Levaquin symptoms did not improve in fact it worsened she was evaluated by infectious disease after having a persistent fever since admission and given the CT findings of multifocal pneumonia the pulmonary service was appropriately consulted for further evaluation possible bronchoscopy Patient is a smoker since age of 13 has smoked about a pack a cigarettes a day but is adamant that she is not getting back to smoking after this hospitalization. She works in an [employer] with no significant industrial or environmental exposures she keeps a dog at home and a hamster which she has no contact with no birds or other exotic pets. Currently she is saturating in the mid 90s on 1 L nasal cannula She denies any new arthralgias nausea vomiting hemoptysis weight loss or sweating at night prior to admission Past Med Surg Social Fam HX - Past Medical History Medical history: kidney stones Additional medical history: MRSA Psychiatric history: no psych history - Past Surgical History Surgical History: Additional surgical history: Tonsilectomy - Social History Smoking Status: Current every day smoker Packs per day: 1 Smokeless Tobacco Status: No Alcohol use: none Drug use: none Medications and Allergies Ondansetron ODT [Zofran ODT] 4 mg SL Q6HR 05/18/18 [History] Oseltamivir [Tamiflu] 75 mg PO BID 05/18/18 [History] Allergy/AdvReac Type Severity Reaction Status Date / Time No Known Allergies Allergy Verified 06/18/16 19:45 All Systems: The remainder of the systems were reviewed and are negative Physical Examination Vital Signs: Vital Signs, Last 4 Hours Temp Pulse Resp BP Pulse Ox 05/19/18 12:00 98.5 F 85 16 120/83 93 General appearance: no acute distress Eyes: nonicteric ENT: oropharynx moist Neck: supple, no lymphadenopathy Effort: normal Auscultation: bilateral: rales (scattered ) Cardiovascular: regular rate and rhythm Gastrointestinal: normoactive bowel sounds Integumentary: normal Extremities: no cyanosis, no edema, no clubbing Musculoskeletal: no deformities normal mental status, non-focal exam mood appropriate Results - Laboratory Findings CBC and BMP: 05/19/18 03:47 05/19/18 03:47 Abnormal lab findings: Abnormal lab results WBC 3.9 K/mcL (4.3-11.1) L 05/19/18 03:47 RBC 3.39 M/mcL (3.82-4.97) L 05/19/18 03:47 Hgb 10.1 g/dL (11.5-15.4) L 05/19/18 03:47 Hct 30.8 % (35.3-44.9) L 05/19/18 03:47 Plt Count 130 K/mcL (140-400) L 05/19/18 03:47 Chloride 108 mEq/L (98-107) H 05/19/18 03:47 Creatinine 0.51 mg/dL (0.60-1.20) L 05/19/18 03:47 Glucose 130 mg/dL (70-105) H 05/19/18 03:47 Calcium 8.3 mg/dL (8.6-10.3) L 05/19/18 03:47 Ur Specific [place] 1.007 (1.010-1.025) L 05/17/18 00:50 Urine Blood Small (Negative) H 05/17/18 00:50 Urine Microscopic RBC 3-5 per hpf (0-3) H 05/17/18 00:50 Ur Squamous Epith Cells Many per lpf (None-Few) H 05/17/18 00:50 - Microbiology Findings Microbiology Findings: Microbiology, Last 48 Hours 05/17/18 09:57 Sputum Culture - Final Sputum - Diagnostic Findings Chest x-ray: report reviewed, image reviewed CT scan - chest: report reviewed, image reviewed - Clinical Findings Intake & Output: Intake & Output 05/18/18 05/19/18 05/19/18 23:59 07:59 15:59 Intake Total 500 / 500 750 / 750 160 / 160 Output Total 1999 / 1999 200 / 200 Balance -1500 / -1500 550 / 550 160 / 160 Weight 77.2 kg Consult Discharge Plan - Plan Referrals: Stephen Carbajal MD [Partnered Physician] - 05/22/18 2:45 pm
[2018-05-19] MEDS ORDERED: Lidocaine Viscous Oral Soln 15 ML SOLUTION MM ONE (17:09)
[2018-05-19] MEDS ORDERED: *HR* FentaNYL (PF) 100 MCG/2 ML VIAL IVP ONE (17:09)
[2018-05-19] MEDS ORDERED: Tetracaine/Benzocaine/Butamben 1 SPRAY AEROSOL MM ONE (17:09)
[2018-05-19] MEDS ORDERED: *HR* Midazolam HCl 5 MG/5 ML VIAL IVP ONE (17:09)
[2018-05-19] MEDS: Ondansetron 4 MG/2 ML VIAL IVP PRN (22:45)
[2018-05-20] MEDS: Acetaminophen 325 MG TABLET PO PRN ×2 (00:15→12:10)
[2018-05-20] MEDS: *HR* HYDROcodone/Acet 5/325 mg TABLET PO PRN (02:42)
[2018-05-20] MEDS: *HR* Promethazine 25 MG/ML VIAL IVP PRN (02:42)
[2018-05-20] MEDS: Piperacillin/Tazobactam 3.375 GM in 0.9 % Sodium Chloride Mini Bag 100 ML IVPB SCH ×3 (03:37→20:36)
--- NOTE | 2018-05-20 06:59 | Pre-Sedation Evaluation ---
Pre-sedation evaluation - Pre-sedation checklist Date of procedure: 05/20/18 Procedure: Bronchoscopy Recent Vitals: Last Vital Signs Temp 97.9 F 05/20/18 06:38 Pulse 56 05/20/18 06:38 Resp 17 05/20/18 06:38 BP 104/75 05/20/18 06:38 Pulse Ox 97 05/20/18 06:38 H&P (including ROS) documented in medical record: Yes Previous reaction to sedatives/anesthetics: No Dietary Status: NPO after Midnight Airway Assessment: Patient can open mouth completely, TMJ function normal Dentition: No loose teeth or bridges Possible difficult airway: No ASA Classification *see protocol: CLASS II-Mild systemic disease Plan of Care: Pt appropriate candidate for procedure/moderate/conscious sedation, Risks/benefits of procedure/sedation discussed w/ patient/family
[2018-05-20] MEDS ORDERED: Aminoglycoside Consult 1 EACH MC ONE (07:06)
[2018-05-20] MEDS ORDERED: *HR* Midazolam HCl 5 MG/5 ML VIAL IVP ONE (07:17)
[2018-05-20] MEDS ORDERED: *HR* FentaNYL (PF) 100 MCG/2 ML VIAL ONE (07:18)
[2018-05-20] MEDS ORDERED: Lidocaine Viscous Oral Soln 15 ML SOLUTION ONE (07:28)
--- NOTE | 2018-05-20 08:21 | Internal Med Progress Note ---
Hospitalist Progress Note - Encounter Date of Encounter: 05/20/18 Time of Encounter: 08:00 - Exam Vitals: Temp Pulse Resp BP Pulse Ox 97.9 F 51 16 102/67 93 05/20/18 08:01 05/20/18 08:01 05/20/18 08:01 05/20/18 08:01 05/20/18 08:01 Exam: Gen: Febrile, in mild resp distress HEENT: Moist roal mucosa, not jaundiced, not pale, not cyanotic Head: Atraumtic Chest: equal chest movement bilaterally Respiratory: Rhonchi right lower and middle lobes. Left lung is clear to auscultation Heart: S1/S2 no murmurs, gallops or rubs Abdomen: Flat soft and nontender no palpable organomegaly Extremities: Tattoos, no pedal edema. - Assessment and Plan (1) Sepsis Current Visit: Yes Status: Acute Assessment and Plan: Patient meets sepsis criteria with fever, tachycardia, low blood pressure and chest x-ray evidence of pneumonia Likely due to multifocal pneumonia. CT chest showed 5 lobe consolidative, grou nd-glass and tree-in-bud airspace opacities are most suspicious for multifocal pneumonia. Continue vanc and zosyn. Seen by ID who recommend continuing broad spectrum antibiotics. Patient to have bronchoscopy today by pulmomnary (2) Multifocal pneumonia Current Visit: Yes Status: Acute Assessment and Plan: On broad spectrum antibiotics. Pulm and ID following (3) Tobacco abuse Current Visit: Yes Status: Chronic Assessment and Plan: Encouraged cessation. (4) Thrombocytopenia Current Visit: Yes Status: Acute Assessment and Plan: Likely due to sepsis and hemodilution, continue to monitor. No bleeding. (5) Hypoxia Current Visit: Yes Status: Acute Assessment and Plan: Continue oxygen supplementation as needed. Likely secondary to multifocal pneumonia (6) DVT prophylaxis Current Visit: Yes Status: Acute Assessment and Plan: Ambulate patient when necessary, SCDs - Time Spent with Patient Total time spent is greater than 50% in coordination of care (as documented) at patient's floor/unit and/or counseling patient: Internal Medicine: Result - Labs CBC & Chem 7: 05/20/18 09:06 05/20/18 09:06 - Impressions Impressions Chest CT 05/19/18 09:07 IMPRESSION: 5 lobe consolidative, ground-glass and tree-in-bud airspace opacities are most suspicious for multifocal pneumonia. Additional rounded/tubular opacity in the anterior left upper lung is indeterminate. This may reflect mucoid impaction within a dilated bronchiole versus soft tissue nodule. Recommend follow-up CT chest in 3 months. Multifocal airspace disease may also be re-evaluated at this time. Small left pleural effusion and mediastinal/hilar lymphadenopathy are presumably reactive. The findings were sent to the Radiology Results Communication Center at 1:11 pm on 05/19/2018to be communicated to a licensed caregiver. D/ / Jono Ware / Jono Ware Interpreting Provider: Jono Ware - VTE Documentation of Mechanical Device: Intermittent pneumatic compression device Consult Discharge Plan - Plan Referrals: Stephen Carbajal MD [Partnered Physician] - 05/22/18 2:45 pm (1) Sepsis Qualifiers: Sepsis type: sepsis due to unspecified organism Qualified Code(s): A41.9 - S epsis, unspecified organism
[2018-05-20 09:22] LABS: Basophils % 0.3 %; Eosinophils # 0.2 K/mcL (0.0-0.6); Eosinophils % 6.6 %; Hematocrit 30.3 % (35.3-44.9); Hemoglobin 9.9 g/dL (11.5-15.4); Immature Granulocytes % 0.3 % (0-4); Lymphocytes # 1.5 K/mcL (0.6-4.6); Lymphocytes % 48.3 %; Mean Corpuscular HGB Conc 32.7 g/dL (31.6-35.5); Mean Corpuscular Volume 91.8 fL (83.0-100.0); Mean Platelet Volume 9.8 fL (9.4-12.4); Monocytes # 0.4 K/mcL (0.0-1.3); Neutrophils # 1.1 K/mcL (1.6-8.9); Platelet Count 137 K/mcL (140-400); Red Cell Distribution Width 13.3 % (11.5-14.5); Segmented Neutrophils % 33.5 %
--- NOTE | 2018-05-20 09:33 | Infectious Disease Progress No ---
Date of Encounter: 05/20/18 Time of Encounter: 09:26 - Assessment and Plan (1) Sepsis Current Visit: Yes Status: Resolved - Met 3/4 SIRS criteria with fever (100.4, HR 112, RR 20) on presentation 05/15 - Suspected source: pulmonary/pneumonia - Suspected organism: unclear at this time - Patient continued to spike fevers during admission on 05/15, 05/16, 05/17, 05/18 despite antibiotic therapy. Tmax 102.7 - Afebrile overnight, no longer meeting sepsis criteria. - No WBC eleavation however WBC <4 at 3.2 this AM. - Started on azithromycin (1 day), ceftriaxone (3 days total) on presentation, stopped 05/18 - Started on vancomycin and zosyn (day 3) for persistent fevers - MRSA screen negative 05/19 - Respiratory infectious panel negative, rapid flu negative here however patient has been treated on Tamiflu since 05/15 - Blood culture 05/16 x2 NG - Urine legionella and strep pneumo Ag negative 05/16, 05/20 - Sputum culture 05/17 shows normal respiratory ayaan. - Cryptococcal antigen negative. Pro-calcitonin and HIV remain pending - CXR on 05/15 in ED shows new infiltrates suggestive of PNA in RUL and LLL. - CXR repeated on 05/18 shows worsening patchy opacification in same areas - CT chest 05/19 shows 5 lobe consolidative, ground glass and tree-in-bud airspace opacities that are suspicious for multifocal PNA. Additional finding of rounded/tubular opacitity with dilated bronchiole vs soft tissue nodule in EMM[place], recommend follow up in 3 months. Small left pleural effusion, mediastinal/hilar lymphadenopathy which is likely reactive. Status post bronchoscopy this morning, 05/10, results pending. Plan - Continue Zosyn, day 3; Levaquin day 2. We will discontinue vancomycin as MRSA swab was negative. - Appreciate pulmonology recommendations. - Low suspicion for TB at this time as she is low risk and immunocompetent. Continue contact precautions. QuantiFERON ordered by pulmonology - Discontinue Tamiflu today as this has been a five-day completed course - Continue supportive care. Qualifiers: Sepsis type: sepsis due to unspecified organism Qualified Code(s): A41.9 - Sepsis, unspecified organism (2) Pneumonia Current Visit: Yes Status: Acute - unclear if this is viral or bacterial etiology - Clinically looks improved today. - Procalcitonin pending results. - Multifocal on CT with low suspicion for aspiration. - Management per above, appreciate pulmonology consult. Qualifiers: Pneumonia type: due to unspecified organism Laterality: unspecified laterality Lung location: unspecified part of lung Qualified Code(s): J18.9 - Pneumonia, unspecified organism (3) Flu Current Visit: Yes Status: Suspected - Suspect influenza given clinical symptoms - Patient has been treated with Tamiflu starting 05/15 (day 5), will discontinue today - Influenza Ag swab 05/16 negative - Respiratory infectious panel negative as well on 05/19 - Patient reporting symptoms of myalgias, persistent fevers, nausea with vomiti ng - I do have some suspicion that influenza still may be present with superimposed pneumonia as she has been treated with oseltamivir and may no longer be shedding the virus at time of testing. - Completed course of tamiflu, continue supportive care. (4) Acute respiratory failure with hypoxia Current Visit: Yes Status: Acute - As above, secondary to pneumonia - Currently requiring 2 L NC, O2 saturation in the mid-low 90s - Subjective Interval history: Patient seen and examined at bedside this morning. She states that overall she is feeling a little bit better. She has notably just returned from her bronchoscopy and still is a little somnolent from the anesthesia. She states that she has not felt feverish overnight although still does complain of a cough which she states is somewhat improved. Infect Dis PN-Objective Data - Labs CBC & Chem 7: 05/21/18 03:30 05/21/18 03:30 Labs: Laboratory Results - last 24 hr 05/19/18 05/19/18 05/20/18 10:00 10:00 00:06 WBC RBC Hgb Hct MCV MCH MCHC RDW Plt Count MPV Immature Gran % Seg Neutrophils % Lymphocytes % Monocytes % Eosinophils % Basophils % Neutrophils # Lymphocytes # Monocytes # Eosinophils # Basophils # Nasal Screen MRSA (PCR) Negative Vancomycin Trough 7 Chlamy pneumoniae PCR Not Detected Adenovirus (PCR) Not Detected B. pertussis DNA (PCR) Not Detected B.parapertussis DNA PCR Not Detected Coronavirus OC43 (PCR) Not Detected Coronavirus HKU1 (PCR) Not Detected Coronavirus 229E (PCR) Not Detected Coronavirus NL63 (PCR) Not Detected Human Metapneumovir PCR Not Detected Influenza A (H1) PCR Not Detected Influ A (H1N1/09) PCR Not Detected Influenza A (H3) PCR Not Detected Influenza A Untype (PCR) Not Detected Influenza Type B (PCR) Not Detected M.pneumoniae DNA (PCR) Not Detected Parainfluenza 1 (PCR) Not Detected Parainfluenza 2 (PCR) Not Detected Parainfluenza 3 (PCR) Not Detected Parainfluenza 4 (PCR) Not Detected RSV (PCR) Not Detected Entero/Rhino (PCR) Not Detected 05/20/18 09:06 WBC 3.2 L RBC 3.30 L Hgb 9.9 L Hct 30.3 L MCV 91.8 MCH 30.0 MCHC 32.7 RDW 13.3 Plt Count 137 L MPV 9.8 Immature Gran % 0.3 Seg Neutrophils % 33.5 Lymphocytes % 48.3 Monocytes % 11.0 Eosinophils % 6.6 Basophils % 0.3 Neutrophils # 1.1 L Lymphocytes # 1.5 Monocytes # 0.4 Eosinophils # 0.2 Basophils # 0.0 Nasal Screen MRSA (PCR) Vancomycin Trough Chlamy pneumoniae PCR Adenovirus (PCR) B. pertussis DNA (PCR) B.parapertussis DNA PCR Coronavirus OC43 (PCR) Coronavirus HKU1 (PCR) Coronavirus 229E (PCR) Coronavirus NL63 (PCR) Human Metapneumovir PCR Influenza A (H1) PCR Influ A (H1N1/) PCR Influenza A (H3) PCR Influenza A Untype (PCR) Influenza Type B (PCR) M.pneumoniae DNA (PCR) Parainfluenza 1 (PCR) Parainfluenza 2 (PCR) Parainfluenza 3 (PCR) Parainfluenza 4 (PCR) RSV (PCR) Entero/Rhino (PCR) Cultures: Cultures 05/20/18 02:57 Legionella Antigen - Final Urine,Clean Catch Streptococcus pneumoniae Antigen (M - Final 05/19/18 15:58 Cryptococcal Antigen - Final Serum 05/17/18 09:57 Sputum Culture - Final Sputum 05/17/18 00:50 Legionella Antigen - Final Urine,Clean Catch Streptococcus pneumoniae Antigen (M - Final 05/16/18 19:30 Influenza Types A,B Antigen - Final Nasopharyngeal 05/16/18 19:30 Blood Culture - Preliminary Peripheral Venipuncture Culture is incubating and being continuously monitored for growth. Final report to follow. 10/20/18 19:52 Blood Culture - Preliminary Peripheral Venipuncture Culture is incubating and being continuously monitored for growth. Final report to follow. Serology 05/19/18 05/19/18 05/17/18 Range/Units 10:00 10:00 00:50 Urine Color (Yellow) Urine Clarity (Clear) Urine pH (5.0-8.0) pH Units Ur Specific [place] (1.010-1.025) Urine Protein (Neg-Trace) mg/dL Urine Glucose (UA) (Normal) mg/dL Urine Ketones (Negative) mg/dL Urine Blood (Negative) Urine Nitrite (Negative) Urine Bilirubin (Negative) Urine Urobilinogen (Normal) mg/dL Ur Leukocyte Esterase (Negative) Urine Microscopic RBC (0-3) per hpf Urine Microscopic WBC (0-3) per hpf Ur Squamous Epith Cells (None-Few) per lpf Urine Bacteria (None-Few) per hpf Hyaline Casts (None-Few) per lpf Ur Culture Indicated? (NO) Urine Test Negative (Negative) Nasal Screen MRSA (PCR) Negative (Negative) Chlamy pneumoniae PCR Not Detected (Not Detect) Adenovirus (PCR) Not Detected (Not Detect) B. pertussis DNA (PCR) Not Detected (Not Detect) B.parapertussis DNA PCR Not Detected (Not Detect) Coronavirus OC43 (PCR) Not Detected (Not Detect) Coronavirus HKU1 (PCR) Not Detected (Not Detect) Coronavirus 229E (PCR) Not Detected (Not Detect) Coronavirus NL63 (PCR) Not Detected (Not Detect) Human Metapneumovir PCR Not Detected (Not Detect) Influenza A (H1) PCR Not Detected (Not Detect) Influ A (H1N1/09) PCR Not Detected (Not Detect) Influenza A (H3) PCR Not Detected (Not Detect) Influenza A Untype (PCR) Not Detected (Not Detect) Influenza Type B (PCR) Not Detected (Not Detect) M.pneumoniae DNA (PCR) Not Detected (Not Detect) Parainfluenza 1 (PCR) Not Detected (Not Detect) Parainfluenza 2 (PCR) Not Detected (Not Detect) Parainfluenza 3 (PCR) Not Detected (Not Detect) Parainfluenza 4 (PCR) Not Detected (Not Detect) RSV (PCR) Not Detected (Not Detect) Entero/Rhino (PCR) Not Detected (Not Detect) 05/17/18 Range/Units 00:50 Urine Color Yellow (Yellow) Urine Clarity Clear (Clear) Urine pH 6.0 (5.0-8.0) pH Units Ur Specific [place] 1.007 L (1.010-1.025) Urine Protein Negative (Neg-Trace) mg/dL Urine Glucose (UA) Normal (Normal) mg/dL Urine Ketones Negative (Negative) mg/dL Urine Blood Small H (Negative) Urine Nitrite Negative (Negative) Urine Bilirubin Negative (Negative) Urine Urobilinogen Normal (Normal) mg/dL Ur Leukocyte Esterase Negative (Negative) Urine Microscopic RBC 3-5 H (0-3) per hpf Urine Microscopic WBC 0-3 (0-3) per hpf Ur Squamous Epith Cells Many H (None-Few) per lpf Urine Bacteria None Seen (None-Few) per hpf Hyaline Casts None Seen (None-Few) per lpf Ur Culture Indicated? NO (NO) Urine Test (Negative) Nasal Screen MRSA (PCR) (Negative) Chlamy pneumoniae PCR (Not Detect) Adenovirus (PCR) (Not Detect) B. pertussis DNA (PCR) (Not Detect) B.parapertussis DNA PCR (Not Detect) Coronavirus OC43 (PCR) (Not Detect) Coronavirus HKU1 (PCR) (Not Detect) Coronavirus 229E (PCR) (Not Detect) Coronavirus NL63 (PCR) (Not Detect) Human Metapneumovir PCR (Not Detect) Influenza A (H1) PCR (Not Detect) Influ A (H1N1/09) PCR (Not Detect) Influenza A (H3) PCR (Not Detect) Influenza A Untype (PCR) (Not Detect) Influenza Type B (PCR) (Not Detect) M.pneumoniae DNA (PCR) (Not Detect) Parainfluenza 1 (PCR) (Not Detect) Parainfluenza 2 (PCR) (Not Detect) Parainfluenza 3 (PCR) (Not Detect) Parainfluenza 4 (PCR) (Not Detect) RSV (PCR) (Not Detect) Entero/Rhino (PCR) (Not Detect) - Impressions Impressions Chest CT 05/19/18 09:07 IMPRESSION: 5 lobe consolidative, ground-glass and tree-in-bud airspace opacities are most suspicious for multifocal pneumonia. Additional rounded/tubular opacity in the anterior left upper lung is indeterminate. This may reflect mucoid impaction within a dilated bronchiole versus soft tissue nodule. Recommend follow-up CT chest in 3 months. Multifocal airspace disease may also be re-evaluated at this time. Small left pleural effusion and mediastinal/hilar lymphadenopathy are presumably reactive. The findings were sent to the Radiology Results Communication Center at 1:11 pm on 05/19/2018to be communicated to a licensed caregiver. D/ / Jono Ware / Jono Ware Interpreting Provider: Jono Ware Exam - Constitutional Vitals: Temp Pulse Resp BP Pulse Ox 97.9 F 81 18 100/63 94 05/20/18 08:01 05/20/18 08:35 05/20/18 08:35 05/20/18 08:35 05/20/18 08:35 Exam: Gen.: Vitals noted. No acute distress. AAOx3. Resting comfortably in bed. Mildly somulent but answers questions appropriately. HEENT: PERRL/EOMI, oropharynx clear, Normocephalic, atraumatic, MMM Cardiac: RRR, no murmur, +S1/S2 Pulmonary: CTA bilaterally, no wheezes, rales or rhonchi, equal chest expansion Abdomen: soft, nontender, no guarding. MSK: ROM intact, no joint swelling noted Extremities: no BLE edema, nontender calf, no cyanosis or clubbing Neuro: A&Ox3, moves all extremities, no focal deficits Psych: Appropriate mood and behavior - VTE Documentation of Mechanical Device: Intermittent pneumatic compression device Consult Discharge Plan - Plan Referrals: Stephen Carbajal MD [Partnered Physician] - 05/22/18 2:45 pm Prescriptions: RX: GuaiFENesin/Dextromethorphan [Robitussin/Dm] 10 ml PO Q6HR PRN 20 Days #20 udc PRN Reason: Cough RX: Benzonatate [Tessalon] 100 mg PO TID PRN 20 Days #60 capsule PRN Reason: Cough Levofloxacin [Levaquin] 750 mg PO DAILY 7 Days #7 tablet - Attending Attestation I examined this patient and my medical decision-making was reviewed with the Resident Physician. I agree with the documented findings, disposition and treatment plan as described except to the extent set forth below.
[2018-05-20 09:42] LABS: BUN/Creatinine Ratio 11 (6-26); Blood Urea Nitrogen 6 mg/dL (6-20); Calcium 8.3 mg/dL (8.6-10.3); Carbon Dioxide 25 mEq/L (23-29); Chloride 110 mEq/L (98-107); Glucose 91 mg/dL (70-105); Osmolality,Calculated 289 (280-300); Potassium 4.1 mEq/L (3.5-5.1); Sodium 141 mEq/L (136-145); eGFR For Non-African Americans > 60 (> 60)
[2018-05-20] MEDS: Levofloxacin 750 MG/150 ML 750 MG/150 ML BAG IVPB SCH (10:49)
[2018-05-20] MEDS: Ondansetron 4 MG/2 ML VIAL IVP PRN (11:56)
[2018-05-20 14:29] LABS: Source of Body Fluid LLL BAL; Source of Body Fluid RUL BAL
[2018-05-20] MEDS: Ibuprofen 400 MG TABLET PO PRN (15:51)
[2018-05-20 16:28] LABS: Appearance of Body Fluid Hazy (Clear); Volume of Body Fluid 7 mL
[2018-05-20 16:35] LABS: Appearance of Body Fluid Slightly Hazy (Clear); Volume of Body Fluid 7 mL
[2018-05-20] MEDS ORDERED: Chloraseptic Spray 177 ML BOTTLE MM PRN (21:34)
[2018-05-20] MEDS: D5% in 0.45% NACL w KCl 20 MEQ/1,000 ML MLS IVC SCH (22:42)
[2018-05-21] MEDS: Piperacillin/Tazobactam 3.375 GM in 0.9 % Sodium Chloride Mini Bag 100 ML IVPB SCH (03:38)
[2018-05-21 04:12] LABS: Basophils % 0.4 %; Eosinophils # 0.3 K/mcL (0.0-0.6); Eosinophils % 6.2 %; Hematocrit 31.7 % (35.3-44.9); Hemoglobin 10.1 g/dL (11.5-15.4); Immature Granulocytes % 0.2 % (0-4); Lymphocytes # 1.7 K/mcL (0.6-4.6); Lymphocytes % 37.7 %; Mean Corpuscular HGB Conc 31.9 g/dL (31.6-35.5); Mean Corpuscular Hemoglobin 29.1 pg (28.0-33.3); Mean Corpuscular Volume 91.4 fL (83.0-100.0); Mean Platelet Volume 10.4 fL (9.4-12.4); Monocytes # 0.5 K/mcL (0.0-1.3); Monocytes % 11.2 %; Platelet Count 170 K/mcL (140-400); Red Blood Count 3.47 M/mcL (3.82-4.97); Segmented Neutrophils % 44.3 %
[2018-05-21 04:27] LABS: BUN/Creatinine Ratio 13 (6-26); Blood Urea Nitrogen 8 mg/dL (6-20); Calcium 8.9 mg/dL (8.6-10.3); Carbon Dioxide 26 mEq/L (23-29); Chloride 105 mEq/L (98-107); Glucose 112 mg/dL (70-105); Magnesium 2.1 mg/dL (1.6-2.6); Osmolality,Calculated 283 (280-300); Phosphorous 3.6 mg/dL (2.7-4.5); Sodium 137 mEq/L (136-145); eGFR For Non-African Americans > 60 (> 60)
[2018-05-21] MEDS ORDERED: Benzonatate 100 MG CAPSULE PO PRN (04:42)
[2018-05-21] MEDS: *HR* Promethazine 25 MG/ML VIAL IVP PRN (05:31)
[2018-05-21 07:56] VITALS: BP 97/60
[2018-05-21] MEDS: Levofloxacin 750 MG/150 ML 750 MG/150 ML BAG IVPB SCH (08:20)
--- NOTE | 2018-05-21 10:43 | Internal Med Progress Note ---
Hospitalist Progress Note - Encounter Date of Encounter: 05/21/18 Time of Encounter: 07:50 - Exam Vitals: Temp Pulse Resp BP Pulse Ox 97.9 F 64 16 108/79 96 05/21/18 04:29 05/21/18 04:29 05/21/18 04:29 05/21/18 04:29 05/21/18 04:29 Exam: Gen: Febrile, in mild resp distress HEENT: Moist roal mucosa, not jaundiced, not pale, not cyanotic Head: Atraumtic Chest: equal chest movement bilaterally Respiratory: Rhonchi right lower and middle lobes. Left lung is clear to auscultation Heart: S1/S2 no murmurs, gallops or rubs Abdomen: Flat soft and nontender no palpable organomegaly Extremities: Tattoos, no pedal edema. - Assessment and Plan (1) Sepsis Current Visit: Yes Status: Resolved Assessment and Plan: Patient meets sepsis criteria with fever, tachycardia, low blood pressure and chest x-ray evidence of pneumonia Likely due to multifocal pneumonia. CT chest showed 5 lobe consolidative, g round-glass and tree-in-bud airspace opacities are most suspicious for multifocal pneumonia. On Zosyn and levaquin. Vanc discontinued as MRSA swab is negative ID following. Patient had bronchoscopy by pulm on 05/20. AFB, fungal cultures, aspergillosis studies requested (2) Multifocal pneumonia Current Visit: Yes Status: Acute Assessment and Plan: On broad spectrum antibiotics. Pulm and ID following (3) Tobacco abuse Current Visit: Yes Status: Chronic Assessment and Plan: Encouraged cessation. (4) Thrombocytopenia Current Visit: Yes Status: Acute Assessment and Plan: Likely due to sepsis and hemodilution, continue to monitor. No bleeding. (5) Hypoxia Current Visit: Yes Status: Acute Assessment and Plan: Continue oxygen supplementation as needed. Likely secondary to multifocal pneumonia (6) DVT prophylaxis Current Visit: Yes Status: Acute Assessment and Plan: Ambulate patient when necessary, SCDs - Time Spent with Patient Total time spent is greater than 50% in coordination of care (as documented) at patient's floor/unit and/or counseling patient: Internal Medicine: Result - Labs CBC & Chem 7: 05/21/18 03:30 05/21/18 03:30 Labs: Short CBC 05/20/18 05/21/18 Range/Units 09:06 03:30 WBC 3.2 L 4.5 (4.3-11.1) K/mcL Hgb 9.9 L 10.1 L (11.5-15.4) g/dL Hct 30.3 L 31.7 L (35.3-44.9) % Plt Count 137 L 170 (140-400) K/mcL Neutrophils # 1.1 L 2.0 (1.6-8.9) K/mcL BMP 05/20/18 05/21/18 09:06 03:30 Sodium 141 137 Potassium 4.1 4.0 Chloride 110 H 105 Carbon Dioxide 25 26 BUN 6 8 Creatinine 0.56 L 0.62 Glucose 91 112 H Calcium 8.3 L 8.9 - VTE Documentation of Mechanical Device: Intermittent pneumatic compression device Consult Discharge Plan - Plan Referrals: Stephen Carbajal MD [Partnered Physician] - 05/22/18 2:45 pm (1) Sepsis Qualifiers: Sepsis type: sepsis due to unspecified organism Qualified Code(s): A41.9 - Sepsis, unspecified organism
--- NOTE | 2018-05-21 10:54 | Infectious Disease Progress No ---
Date of Encounter: 05/21/18 Time of Encounter: 10:11 - Assessment and Plan (1) Sepsis Status: Resolved - Met 3/4 SIRS criteria with fever (100.4, HR 112, RR 20) on presentation 05/15 - Suspected source: pulmonary/pneumonia - Suspected organism: unclear at this time, suspect viral etiology - Patient continued to spike fevers during admission on 05/15, 05/16, 05/17, 05/18 despite antibiotic therapy. Tmax 102.7 - Afebrile now x3 days, no longer meeting sepsis criteria. - No WBC eleavation, returned to wnl at 4.5 - Started on azithromycin (1 day), ceftriaxone (3 days total) on presentation, stopped 05/18 - Started on vancomycin and zosyn (day 4) for persistent fevers. Vancomycin stopped 05/20 due to MRSA negative swab - MRSA screen negative 05/19 - Respiratory infectious panel negative, rapid flu negative here however patient has been treated on Tamiflu since 05/15 - Blood culture 05/16 x2 NG - Urine legionella and strep pneumo Ag negative 05/16, 05/20 - Sputum culture 05/17 shows normal respiratory ayaan. - Cryptococcal antigen negative. Pro-calcitonin and HIV remain pending - BAL fluid requested for AFB, fungal culture, respiratory viral panel. Pending. - CXR on 05/15 in ED shows new infiltrates suggestive of PNA in RUL and LLL. - CXR repeated on 05/18 shows worsening patchy opacification in same areas - CT chest 05/19 shows 5 lobe consolidative, ground glass and tree-in-bud airspace opacities that are suspicious for multifocal PNA. Additional finding of rounded/tubular opacitity with dilated bronchiole vs soft tissue nodule in EMMANUEL, recommend follow up in 3 months. Small left pleural effusion, mediastinal/hilar lymphadenopathy which is likely reactive. Status post bronchoscopy 05/20, results pending. BAL gram stain shows no bacteria in both EMMANUEL and RML. Plan - Discontinue Zosyn, day 4; Continue Levaquin day 3 and transition to PO. Recommend total of 7 day course. - Appreciate pulmonology recommendations. - Low suspicion for TB at this time as she is low risk and immunocompetent. Continue contact precautions. - Discontinued Tamiflu as this has been a five-day completed course - BAL gram stain does not show bacteria. AFB and cytometry pending. - Continue supportive care. Qualifiers: Sepsis type: sepsis due to unspecified organism Qualified Code(s): A41.9 - Sepsis, unspecified organism (2) Pneumonia Status: Acute - unclear if this is viral or bacterial etiology - Clinically looks improved today. - Procalcitonin pending results. - Multifocal on CT with low suspicion for aspiration. - Management per above, appreciate pulmonology consult. Qualifiers: Pneumonia type: due to unspecified organism Laterality: unspecified laterality Lung location: unspecified part of lung Qualified Code(s): J18.9 - Pneumonia, unspecified organism (3) Flu Status: Suspected - Suspect influenza given clinical symptoms - Patient has been treated with Tamiflu starting 05/15 (day 5), discontinued - Influenza Ag swab 05/16 negative - Respiratory infectious panel negative as well on 05/19 - Patient reporting symptoms of myalgias, persistent fevers, nausea with vomiting - I do have some suspicion that influenza still may be present with superimposed pneumonia as she has been treated with oseltamivir and may no longer be shedding the virus at time of testing. - Completed course of tamiflu, continue supportive care. (4) Acute respiratory failure with hypoxia Status: Acute - As above, secondary to pneumonia - Currently requiring 1 L NC, O2 saturation in the mid-low 90s - Attempt to wean - Subjective Interval history: Patient seen and examined at bedside this morning. Overall she states she feels much better with no complaints of fevers, chills or night. She does does have a minimally productive cough with thin clear sputum which is much improved. She denies any symptoms shortness of breath however he still requiring 1 L of oxygen via nasal cannula. Denies any symptoms of nausea, vomiting and is tolerating it works well. She is eager to return home once medically cleared Infect Dis PN-Objective Data - Labs CBC & Chem 7: 05/21/18 03:30 05/21/18 03:30 Labs: Laboratory Results - last 24 hr 05/20/18 05/20/18 05/21/18 08:57 08:57 03:30 WBC 4.5 RBC 3.47 L Hgb 10.1 L Hct 31.7 L MCV 91.4 MCH 29.1 MCHC 31.9 RDW 13.0 Plt Count 170 MPV 10.4 Immature Gran % 0.2 Seg Neutrophils % 44.3 Lymphocytes % 37.7 Monocytes % 11.2 Eosinophils % 6.2 Basophils % 0.4 Neutrophils # 2.0 Lymphocytes # 1.7 Monocytes # 0.5 Eosinophils # 0.3 Basophils # 0.0 Sodium Potassium Chloride Carbon Dioxide BUN Creatinine Est GFR ( Amer) Est GFR (Non-Af Amer) BUN/Creatinine Ratio Glucose Calculated Osmolality Calcium Phosphorus Magnesium Fluid Source RUL BAL LLL BAL Fluid Volume 7 7 Fluid Appearance Hazy A Slightly Hazy A Fluid RBC < 0.002 0.007 Fld Tot Nucleated Cell 556 504 Fluid Seg Neutrophil % 60.0 66.0 Fld Band Neutrophil % Test Not Performed Test Not Performed Fluid Lymphocytes % 20.0 22.0 Fluid Monocytes % 6.0 10.0 Fluid Eosinophils % 4.0 Test Not Performed Fluid Basophils % Test Not Performed Test Not Performed Fluid Other Cells % 10.0 2.0 05/21/18 03:30 WBC RBC Hgb Hct MCV MCH MCHC RDW Plt Count MPV Immature Gran % Seg Neutrophils % Lymphocytes % Monocytes % Eosinophils % Basophils % Neutrophils # Lymphocytes # Monocytes # Eosinophils # Basophils # Sodium 137 Potassium 4.0 Chloride 105 Carbon Dioxide 26 BUN 8 Creatinine 0.62 Est GFR ( Amer) > 60 Est GFR (Non-Af Amer) > 60 BUN/Creatinine Ratio 13 Glucose 112 H Calculated Osmolality 283 Calcium 8.9 Phosphorus 3.6 Magnesium 2.1 Fluid Source Fluid Volume Fluid Appearance Fluid RBC Fld Tot Nucleated Cell Fluid Seg Neutrophil % Fld Band Neutrophil % Fluid Lymphocytes % Fluid Monocytes % Fluid Eosinophils % Fluid Basophils % Fluid Other Cells % Cultures: Cultures 05/20/18 08:57 Respiratory Culture - Preliminary Left Lower Lobe Lung 05/20/18 08:57 Respiratory Culture - Preliminary Right Upper Lobe Lung 05/20/18 02:57 Legionella Antigen - Final Urine,Clean Catch Streptococcus pneumoniae Antigen (M - Final 05/19/18 15:58 Cryptococcal Antigen - Final Serum 05/17/18 09:57 Sputum Culture - Final Sputum 05/17/18 00:50 Legionella Antigen - Final Urine,Clean Catch Streptococcus pneumoniae Antigen (M - Final 05/16/18 19:30 Influenza Types A,B Antigen - Final Nasopharyngeal 05/16/18 19:30 Blood Culture - Preliminary Peripheral Venipuncture Culture is incubating and being continuously monitored for growth. Final report to follow. 05/16/18 19:52 Blood Culture - Preliminary Peripheral Venipuncture Culture is incubating and being continuously monitored for growth. Final report to follow. Serology 05/20/18 05/20/18 05/19/18 Range/Units 08:57 08:57 10:00 Urine Color (Yellow) Urine Clarity (Clear) Urine pH (5.0-8.0) pH Units Ur Specific [place] (1.010-1.025) Urine Protein (Neg-Trace) mg/dL Urine Glucose (UA) (Normal) mg/dL Urine Ketones (Negative) mg/dL Urine Blood (Negative) Urine Nitrite (Negative) Urine Bilirubin (Negative) Urine Urobilinogen (Normal) mg/dL Ur Leukocyte Esterase (Negative) Urine Microscopic RBC (0-3) per hpf Urine Microscopic WBC (0-3) per hpf Ur Squamous Epith Cells (None-Few) per lpf Urine Bacteria (None-Few) per hpf Hyaline Casts (None-Few) per lpf Ur Culture Indicated? (NO) Urine Test (Negative) Fluid Source LLL BAL RUL BAL Fluid Volume 7 7 mL Fluid Appearance Slightly Hazy A Hazy A (Clear) Fluid RBC 0.007 < 0.002 (No Ref Range) M/mcL Fld Tot Nucleated Cell 504 556 (No Ref Range) TNC/mcL Fluid Seg Neutrophil % 66.0 60.0 % Fld Band Neutrophil % Test Not Performed Test Not Performed Fluid Lymphocytes % 22.0 20.0 % Fluid Monocytes % 10.0 6.0 % Fluid Eosinophils % Test Not Performed 4.0 % Fluid Basophils % Test Not Performed Test Not Performed Fluid Other Cells % 2.0 10.0 % Nasal Screen MRSA (PCR) (Negative) Chlamy pneumoniae PCR Not Detected (Not Detect) Adenovirus (PCR) Not Detected (Not Detect) B. pertussis DNA (PCR) Not Detected (Not Detect) B.parapertussis DNA PCR Not Detected (Not Detect) Coronavirus OC43 (PCR) Not Detected (Not Detect) Coronavirus HKU1 (PCR) Not Detected (Not Detect) Coronavirus 229E (PCR) Not Detected (Not Detect) Coronavirus NL63 (PCR) Not Detected (Not Detect) Human Metapneumovir PCR Not Detected (Not Detect) Influenza A (H1) PCR Not Detected (Not Detect) Influ A (H1N1/09) PCR Not Detected (Not Detect) Influenza A (H3) PCR Not Detected (Not Detect) Influenza A Untype (PCR) Not Detected (Not Detect) Influenza Type B (PCR) Not Detected (Not Detect) M.pneumoniae DNA (PCR) Not Detected (Not Detect) Parainfluenza 1 (PCR) Not Detected (Not Detect) Parainfluenza 2 (PCR) Not Detected (Not Detect) Parainfluenza 3 (PCR) Not Detected (Not Detect) Parainfluenza 4 (PCR) Not Detected (Not Detect) RSV (PCR) Not Detected (Not Detect) Entero/Rhino (PCR) Not Detected (Not Detect) 05/19/18 05/17/18 05/17/18 Range/Units 10:00 00:50 00:50 Urine Color Yellow (Yellow) Urine Clarity Clear (Clear) Urine pH 6.0 (5.0-8.0) pH Units Ur Specific [place] 1.007 L (1.010-1.025) Urine Protein Negative (Neg-Trace) mg/dL Urine Glucose (UA) Normal (Normal) mg/dL Urine Ketones Negative (Negative) mg/dL Urine Blood Small H (Negative) Urine Nitrite Negative (Negative) Urine Bilirubin Negative (Negative) Urine Urobilinogen Normal (Normal) mg/dL Ur Leukocyte Esterase Negative (Negative) Urine Microscopic RBC 3-5 H (0-3) per hpf Urine Microscopic WBC 0-3 (0-3) per hpf Ur Squamous Epith Cells Many H (None-Few) per lpf Urine Bacteria None Seen (None-Few) per hpf Hyaline Casts None Seen (None-Few) per lpf Ur Culture Indicated? NO (NO) Urine Test Negative (Negative) Fluid Source Fluid Volume mL Fluid Appearance (Clear) Fluid RBC (No Ref Range) M/mcL Fld Tot Nucleated Cell (No Ref Range) TNC/mcL Fluid Seg Neutrophil % % Fld Band Neutrophil % Fluid Lymphocytes % % Fluid Monocytes % % Fluid Eosinophils % % Fluid Basophils % Fluid Other Cells % % Nasal Screen MRSA (PCR) Negative (Negative) Chlamy pneumoniae PCR (Not Detect) Adenovirus (PCR) (Not Detect) B. pertussis DNA (PCR) (Not Detect) B.parapertussis DNA PCR (Not Detect) Coronavirus OC43 (PCR) (Not Detect) Coronavirus HKU1 (PCR) (Not Detect) Coronavirus 229E (PCR) (Not Detect) Coronavirus NL63 (PCR) (Not Detect) Human Metapneumovir PCR (Not Detect) Influenza A (H1) PCR (Not Detect) Influ A (H1N1/09) PCR (Not Detect) Influenza A (H3) PCR (Not Detect) Influenza A Untype (PCR) (Not Detect) Influenza Type B (PCR) (Not Detect) M.pneumoniae DNA (PCR) (Not Detect) Parainfluenza 1 (PCR) (Not Detect) Parainfluenza 2 (PCR) (Not Detect) Parainfluenza 3 (PCR) (Not Detect) Parainfluenza 4 (PCR) (Not Detect) RSV (PCR) (Not Detect) Entero/Rhino (PCR) (Not Detect) Exam - Constitutional Vitals: Temp Pulse Resp BP Pulse Ox 98.5 F 72 16 97/60 92 05/21/18 07:52 05/21/18 07:52 05/21/18 07:52 05/21/18 07:52 05/21/18 07:52 Exam: Gen.: Vitals noted. No acute distress. AAOx3, much more color today HEENT: PERRL/EOMI, oropharynx clear, Normocephalic, atraumatic, MMM Cardiac: RRR, no murmur, +S1/S2 Pulmonary: Continues to have left-sided middle Rales, mildly improved from previous. equal chest expansion Abdomen: soft, nontender, BS noted, no guarding, no rebound. Extremities: no BLE edema, nontender calf, no cyanosis or clubbing Neuro: A&Ox3, moves all extremities, no focal deficits Psych: Appropriate mood and behavior - VTE Documentation of Mechanical Device: Intermittent pneumatic compression device Consult Discharge Plan - Plan Instructions: Benzonatate (By mouth), Dextromethorphan (By mouth), Levofloxacin (By mouth), Acute Respiratory Distress Syndrome (DC), Sepsis (DC), Pneumonia (DC) Referrals: Stephen Carbajal MD [Partnered Physician] - 05/22/18 2:45 pm Prescriptions: RX: GuaiFENesin/Dextromethorphan [Robitussin/Dm] 10 ml PO Q6HR PRN 20 Days #20 udc PRN Reason: Cough Promethazine [Phenergan] 25 mg PO Q6HR 14 Days #30 tablet RX: Benzonatate [Tessalon] 100 mg PO TID PRN 20 Days #60 capsule PRN Reason: Cough Levofloxacin [Levaquin] 750 mg PO DAILY 7 Days #7 tablet - Attending Attestation I examined this patient and my medical decision-making was reviewed with the Resident Physician. I agree with the documented findings, disposition and treatment plan as described except to the extent set forth below.
--- NOTE | 2018-05-21 12:36 | Discharge Summary ---
Orders not resulted at time of discharge: Pending orders 05/16/18 19:30 Culture,Blood [BC] Stat 05/17/18 00:50 Test Result, Urine [URIN] Stat Urinalysis Reflex Cult & Micro [URIN] Stat 05/19/18 15:58 HIV Qualitative PCR(Detection) Routine Procalcitonin Routine 05/20/18 08:57 AFB Culture, Respiratory [TB] Routine AFB Culture, Respiratory [TB] Routine Culture,Respiratory [RM] Routine Culture,Respiratory [RM] Routine Fungal Culture [MYC] Routine Fungal Culture [MYC] Routine Herpes Simplex PCR Body Fl Routine Legionella Culture [RM] Routine Legionella Culture [RM] Routine Resp.Virus Panel,Body Fl Routine Resp.Virus Panel,Body Fl Routine 05/20/18 09:00 Bronch Asper.galactomannan Routine Bronch Asper.galactomannan Routine Miscellaneous Lab Test Routine Miscellaneous Lab Test Routine 05/20/18 14:27 Herpes Simplex PCR Body Fl Routine 05/22/18 04:00 Basic Metabolic Panel AM 0400 CBC [Complete Blood Count] [HEME] AM 0400 Magnesium AM 0400 Phosphorous AM 0400 05/23/18 04:00 Basic Metabolic Panel AM 0400 CBC [Complete Blood Count] [HEME] AM 0400 Magnesium AM 0400 Phosphorous AM 0400 05/24/18 04:00 Basic Metabolic Panel AM 0400 CBC [Complete Blood Count] [HEME] AM 0400 Magnesium AM 0400 Phosphorous AM 0400 05/25/18 04:00 Basic Metabolic Panel AM 0400 CBC [Complete Blood Count] [HEME] AM 0400 Magnesium AM 0400 Phosphorous AM 0400 05/26/18 04:00 Basic Metabolic Panel AM 0400 CBC [Complete Blood Count] [HEME] AM 0400 Magnesium AM 0400 Phosphorous AM 0400 Date of Encounter: 05/21/18 Time of Encounter: 12:30 - Discharge Diagnosis (1) Sepsis Priority: Primary Status: Resolved Assessment and Plan: 33 year old female began having a funny feeling in her chest 2 days prior to admission, gradually the pain worsened and was accompanied with shaking, fever and chills. She also started having a cough that is productive of white sputum at first but now green sputum. She went to the ER the day before her admission, was diagnosed with the flu, given Tamiflu and sent home. Despite the Tamiflu her symptoms worsened, she continued to have fevers, chills and vomiting. She returned to the emergency room for further management. In the emergency room her CBC showed a platelet count of 139, BMP was within normal limits. Lactic acid was 0.9. Urinalysis showed small blood with many squamous cells. Chest x-ray when compared to the day prior showed a new infiltrate suggesting pneumonia involving the right upper and left lower lobes. She was given antibiotics, blood cultures were drawn and she was sent to the floor for further management. Patient was admitted with sepsis due to with fever, tachycardia, low blood pressure and chest x-ray evidence of pneumonia. She was started on antibiotics but continued to be febrile so antibiotics were broadened to vanc and zosyn. CT chest was done and showed 5 lobe consolidative, ground-glass and tree-in-bud airspace opacities most suspicious for multifocal pneumonia. Pulm and ID were consulted. Patient had bronchoscopy by pulm on 05/20. AFB, fungal cultures, aspergillosis studies requested She clinically improved and per ID recs will be discharged on 7 days of levaquin and will follow up outpatient with ID. 35 minutes was spent discharging this patient Qualifiers: Sepsis type: sepsis due to unspecified organism Qualified Code(s): A41.9 - Sepsis, unspecified organism (2) Multifocal pneumonia Priority: Primary Status: Acute Assessment and Plan: On broad spectrum antibiotics. Pulm and ID following (3) Tobacco abuse Priority: Primary Status: Chronic (4) Thrombocytopenia Priority: Primary Status: Acute (5) Hypoxia Priority: Primary Status: Acute (6) DVT prophylaxis Priority: Primary Status: Acute Hospital course: Ms. Nieves is a 33 year old female - Time Spent with Patient Total time spent providing and/or coordinating discharge services: - Discharge Medications Prescriptions: GuaiFENesin/Dextromethorphan [Robitussin/Dm] 10 ml PO Q6HR PRN 20 Days #20 udc PRN Reason: Cough Benzonatate [Tessalon] 100 mg PO TID PRN 20 Days #60 capsule PRN Reason: Cough Levofloxacin [Levaquin] 750 mg PO DAILY 7 Days #7 tablet Home Medications: Ondansetron ODT [Zofran ODT] 4 mg SL Q6HR 05/18/18 [History] Benzonatate [Tessalon] 100 mg PO TID PRN 20 Days #60 capsule 05/21/18 [Rx] GuaiFENesin/Dextromethorphan [Robitussin/Dm] 10 ml PO Q6HR PRN 20 Days #20 udc 05/21/18 [Rx] Levofloxacin [Levaquin] 750 mg PO DAILY 7 Days #7 tablet 05/21/18 [Rx] Allergies/Adverse Reactions: Allergy/AdvReac Type Severity Reaction Status Date / Time No Known Allergies Allergy Verified 06/18/16 19:45 Date of admission: 05/17/18 13:14 Primary care physician: PCP NONE Consults: 05/19/18 09:06 Consult to Infectious Diseases [CONS] Routine Consulting Provider: [facility] [place] Reason for Consult: persistent fever spikes on vanc and zosyn Call Completed: No 05/19/18 15:25 Consult to Pulmonology [CONS] Routine Consulting Provider: [facility] [place] Reason for Consult: PNA, respiratory failure, hypoxia Call Completed: Yes - Constitutional Vitals: Temp Pulse Resp BP Pulse Ox 98.5 F 72 16 97/60 92 05/21/18 07:52 05/21/18 07:52 05/21/18 07:52 05/21/18 07:52 05/21/18 07:52 General appearance: Present: cooperative, mild distress, A&O X 3, pleasant, answers questions appropriately Exam: Gen: Febrile, in mild resp distress HEENT: Moist roal mucosa, not jaundiced, not pale, not cyanotic Head: Atraumtic Chest: equal chest movement bilaterally Respiratory: Rhonchi right lower and middle lobes. Left lung is clear to auscultation Heart: S1/S2 no murmurs, gallops or rubs Abdomen: Flat soft and nontender no palpable organomegaly Extremities: Tattoos, no pedal edema. - Patient Status Disposition: Home, Self-Care Condition: Good - Discharge Instructions Follow Up With: Stephen Carbajal MD [Partnered Physician] - 05/22/18 2:45 pm Forms: ED Satisfaction Letter - VTE Documentation of Mechanical Device: Intermittent pneumatic compression device
--- NOTE | 2018-05-21 14:53 | Pulmonology Progress Note ---
Date of Encounter: 05/21/18 Time of Encounter: 14:51 Assessment and Plan (1) Multifocal pneumonia Current Visit: Yes Status: Acute Status post bronchoscopy thus far the BAL from the right upper lobe and right lower lobe were unremarkable for organisms will follow-up on results defer management of antimicrobials to infectious disease I suspect she would need 7-10 days to complete a course follow-up with infectious diseaseshe will need a CT scan in 4-6 weeks to demonstrate resolution of her pneumonia can be referred to pulmonary as incomplete resolution or if further concern exists (2) Tobacco abuse Current Visit: Yes Status: Chronic Reminded her to remain tobacco free Pulmonary will sign off Subjective Principal diagnosis: Pneumonia Interval history: Jo Ann says she is feeling better and anxious to go home she is been afebrile over the last day. No untoward effects status post bronchoscopy denies any hemoptysis or hoarseness of voice Objective PUL Vital signs: Last Vital Signs Temp 98.5 F 05/21/18 07:52 Pulse 72 05/21/18 07:52 Resp 16 05/21/18 07:52 BP 97/60 05/21/18 07:52 Pulse Ox 92 05/21/18 07:52 General appearance: no acute distress Eyes: nonicteric ENT: oropharynx moist Neck: supple Effort: normal Auscultation: bilateral: rales (Scattered) Cardiovascular: regular rate and rhythm Gastrointestinal: normoactive bowel sounds, soft, non-tender Integumentary: normal Extremities: no cyanosis, no edema Musculoskeletal: no deformities normal mental status, non-focal exam mood appropriate Results - Laboratory Findings CBC and BMP: 05/21/18 03:30 05/21/18 03:30 Abnormal lab findings: Abnormal lab results RBC 3.47 M/mcL (3.82-4.97) L 05/21/18 03:30 Hgb 10.1 g/dL (11.5-15.4) L 05/21/18 03:30 Hct 31.7 % (35.3-44.9) L 05/21/18 03:30 Glucose 112 mg/dL (70-105) H 05/21/18 03:30 Ur Specific [place] 1.007 (1.010-1.025) L 05/17/18 00:50 Urine Blood Small (Negative) H 05/17/18 00:50 Urine Microscopic RBC 3-5 per hpf (0-3) H 05/17/18 00:50 Ur Squamous Epith Cells Many per lpf (None-Few) H 05/17/18 00:50 Fluid Appearance Slightly Hazy (Clear) A 05/20/18 08:57 - Microbiology Findings Microbiology Findings: Microbiology, Last 48 Hours 05/20/18 08:57 Respiratory Culture - Preliminary Right Upper Lobe Lung 05/20/18 08:57 Respiratory Culture - Preliminary Left Lower Lobe Lung 05/20/18 02:57 Legionella Antigen - Final Urine,Clean Catch Streptococcus pneumoniae Antigen (M - Final 05/19/18 15:58 Cryptococcal Antigen - Final Serum - Clinical Findings Intake & Output: Intake & Output 05/20/18 05/21/18 05/21/18 23:59 07:59 15:59 Intake Total 1150 / 1150 100 / 100 Balance 1150 / 1150 100 / 100 Weight 78.4 kg - VTE Documentation of Mechanical Device: Intermittent pneumatic compression device Consult Discharge Plan - Plan Instructions: Benzonatate (By mouth), Dextromethorphan (By mouth), Levofloxacin (By mouth), Sepsis (DC), Pneumonia (DC) Referrals: Stephen Carbajal MD [Partnered Physician] - 05/22/18 2:45 pm Prescriptions: GuaiFENesin/Dextromethorphan [Robitussin/Dm] 10 ml PO Q6HR PRN 20 Days #20 udc PRN Reason: Cough Benzonatate [Tessalon] 100 mg PO TID PRN 20 Days #60 capsule PRN Reason: Cough Levofloxacin [Levaquin] 750 mg PO DAILY 7 Days #7 tablet
[2018-05-22] MEDS ORDERED: levoFLOXacin 750 MG TABLET PO SCH (09:00)
[2018-05-22 22:11] LABS: BronchAsperGalactomannan Index 0.09; BronchAsperGalactomannan Index 0.28
[2018-05-24 03:03] LABS: Influenza A PCR Body Fluid NOT DETECTED; Influenza B PCR Body Fluid NOT DETECTED; RVP Body Fluid Source BAL LLL
[2018-05-24 07:10] LABS: HSV Source RUL BAL
[2018-05-24 07:11] LABS: HSV Source LLL BAL
[2018-05-24 07:37] LABS: RSV PCR Body Fluid NOT DETECTED
== END 2018-05-21 17:56 | disposition home or self-care (01) | DRG 871 ==
LOC: 2NENU 17:29 → EMEROOARM 17:29 → SUATTDRO 21:32 → 2NENU 23:14 → SUATTDRO 05-17 13:14
PROVIDERS: ADMIT Pediatrics; ATTEND Student in an Organized Health Care Education/Training Program